=== PATIENT | male | born 1975 | race Caucasian/White ===

== ENCOUNTER 2022-07-23 18:13 | Inpatient (IN) | payer MEDICAID, SELFPAY ==
--- NOTE | ~2022-07-23 | CT_ITS ---
EXAMINATION: CT ABDOMEN AND PELVIS WITH CONTRAST CLINICAL INFORMATION: Abdominal pain COMPARISON: None TECHNIQUE: Multidetector volumetric images were obtained from the superior aspect of the liver through the pubic symphysis following administration 85 mL of Omnipaque 350 intravenous contrast. Sagittal and coronal reformatted images were obtained on the technologist's workstation. Oral contrast: No This CT examination was performed using dose optimization techniques as appropriate, variously including the following: *Automated exposure control *Adjustment of mA and/or kV according to patient size (this includes techniques or standardized protocols for targeted exams where dose is matched to indication/reason for exam; i.e. extremities or head) *Use of iterative reconstruction technique DLP: 442 mGy-cm FINDINGS: LUNG BASES: Mild bronchial wall thickening. LIVER, GALLBLADDER, AND BILIARY TREE: Hepatic steatosis. No focal liver lesions. Heterogeneous attenuation in the right lobe of liver relates to varying degrees of fatty infiltration and likely arterial portal shunting. No focal liver lesions. No biliary dilatation. Gallbladder unremarkable. PANCREAS: Unremarkable. SPLEEN: Unremarkable. ADRENAL GLANDS: Unremarkable. KIDNEYS AND URETERS: The kidneys are normal in size, shape, and attenuation. 2 mm nonobstructive calculus in the interpolar region of the left kidney bilateral simple renal cysts which are benign. No follow-up required. No hydronephrosis or hydroureter.. No perinephric stranding. BLADDER: Unremarkable. GASTROINTESTINAL TRACT: No intestinal obstruction or inflammation. Submucosal fat deposition within the right colon, nonspecific. Normal appendix. ABDOMINAL WALL: No significant hernia is appreciated. LYMPH NODES: Normal. VASCULAR: Unremarkable. PELVIC VISCERA: Unremarkable. OSSEOUS STRUCTURES: Unremarkable. CT/CT abdomen pelvis w IV con IMPRESSION: * No CT imaging evidence of pancreatitis. Please note that CT does not exclude very early pancreatitis. * Hepatic steatosis. * Nonobstructive 2 mm calculus, left kidney. Fleischner guidelines were followed.
[2022-07-23 19:26] VITALS: BP 142/98; PULSE 90; RESP 18; TEMP 36.8; O2SAT 98; BMI 21.7
[2022-07-23 19:50] LABS: Mean Corpuscular Hemoglobin 36.4 pg (27.0-33.0); PLT CLUMP 1; Red Cell Distribution Width 11.5 % (11.0-16.0)
[2022-07-23 19:52] LABS: Hematocrit 40.8 % (42.0-52.0); Hemoglobin 14.7 g/dl (14.0-18.0); Mean Platelet Volume 10.7 fL (9.4-12.4); Red Blood Count 4.04 X10*6/uL (4.60-5.80)
--- NOTE | 2022-07-23 19:52 | ED.ALCOHOL ---
HPI - Alcohol General Chief Complaint: ETOH/Substance Use <CHRISTINA Bran - Last Filed: 07/23/22 19:58> Stated Complaint: Seeking detox <CHRISTINA Bran - Last Filed: 07/23/22 19:58> Time Seen by Provider: 07/23/22 19:59 <CHRISTINA Bran - Last Filed: 07/23/22 19:58> Source: patient <Ernst Hyman MD - Last Filed: 07/23/22 21:02> Mode of arrival: ambulatory <Ernst Hyman MD - Last Filed: 07/23/22 21:02> Limitations: no limitations <Ernst Hyman MD - Last Filed: 07/23/22 21:02> History of Present Illness HPI narrative: 46-year-old male who presents emergency department for evaluation of nausea, vomiting, lightheadedness, dizziness and abdominal pain. Patient states he has been sick for 2 days. He states that he has not been able to eat or drink and has vomited multiple times. He states that this morning when he woke up he was having visual hallucinations. He states that he saw person standing in his room that was playing a guitar. He states that he is also having diffuse, sharp, Moderate to severe, abdominal pain which is intermittent and is worse when he vomits. He states that he is feeling lightheaded, dizzy, weak in the room is spinning. Patient normally drinks 10-20 nips of vodka per day. States his last drink was last night at 23:30 hours. Patient states that he has very tremulous. He states he has had alcohol withdrawal in the past but this is his worst episode. He states that he wants to get help with his alcohol use disorder. <Ernst Hyman MD - Last Filed: 07/23/22 21:02> Related Data Allergies/Adverse Reactions: Allergies Allergy/AdvReac Type Severity Reaction Status Date / Time No Known Allergies Allergy Verified 07/23/22 19:51 <CHRISTINA Bran - Last Filed: 07/23/22 19:58> Review of Systems Review of Systems: Yes all other systems are reviewed and are negative <Ernst Hyman MD - Last Filed: 07/23/22 21:02> [facility] Past Medical History [facility] Narrative: past medical history: Alcohol use disorder, pancreatitis. Past surgical history: Tonsillectomy. Social history: He smokes 1 pack of cigarettes per day times 21 years. He drinks 10-20 nips of vodka per day. He smokes marijuana daily. <Ernst Hyman MD - Last Filed: 07/23/22 21:02> Physical Exam ED Vital Signs: Vital Signs - 24 hr 07/23/22 19:26 07/23/22 20:46 Temperature 98.2 F 98.6 F Pulse Rate 90 85 Respiratory Rate 18 15 Blood Pressure 142/98 H 142/94 H Pulse Oximetry 98 100 Oxygen Delivery Method Room Air Room Air BMI result Body Mass Index 21.7 <CHRISTINA Bran - Last Filed: 07/23/22 19:58> Vital Signs - 24 hr 07/23/22 19:26 07/23/22 20:46 Temperature 98.2 F 98.6 F Pulse Rate 90 85 Respiratory Rate 18 15 Blood Pressure 142/98 H 142/94 H Pulse Oximetry 98 100 Oxygen Delivery Method Room Air Room Air BMI result Body Mass Index 21.7 <Ernst Hyman MD - Last Filed: 07/23/22 21:02> Const Other: Awake, alert, male patient, he is very tremulous, has a strong ketotic odor to his breath <Ernst Hyman MD - Last Filed: 07/23/22 21:02> HENMT Head: Yes normal to inspection, Yes normocephalic and Yes atraumatic <Ernst Hyman MD - Last Filed: 07/23/22 21:02> Ears: external ears normal <Ernst Hyman MD - Last Filed: 07/23/22 21:02> General nose exam: Normal external nose present <Ernst Hyman MD - Last Filed: 07/23/22 21:02> Face and sinus: Yes normal facial exam <Ernst Hyman MD - Last Filed: 07/23/22 21:02> Mouth: Normal oral and palatal mucosa present <Ernst Hyman MD - Last Filed: 07/23/22 21:02> Throat: Yes posterior oropharynx normal <Ernst Hyman MD - Last Filed: 07/23/22 21:02> Eyes General: appearance normal, both eyes and all related structures <Ernst Hyman MD - Last Filed: 07/23/22 21:02> Pupils: Equal, round and reactive pupils present <Ernst Hyman MD - Last Filed: 07/23/22 21:02> Neck Neck: Yes normal visual inspection, Yes no lymphadenopathy, Yes trachea midline and Yes supple <Ernst Hyman MD - Last Filed: 07/23/22 21:02> Chest Chest palpation & inspection: normal inspection of the chest and normal palpation of entire chest wall <Ernst Hyman MD - Last Filed: 07/23/22 21:02> Resp Effort & Inspection: normal respiratory effort and able to speak in complete sentences <Ernst Hyman MD - Last Filed: 07/23/22 21:02> Auscultation: clear to auscultation bilaterally <Ernst Hyman MD - Last Filed: 07/23/22 21:02> Cardio Rate: regular rate <MD [place] Ron Last Filed: 07/23/22 21:02> Rhythm: regular rhythm <Ernst Hyman MD - Last Filed: 07/23/22 21:02> Heart sounds: S1 normal heart sound present, S2 normal heart sound present and no murmurs <Ernst Hyman MD - Last Filed: 07/23/22 21:02> GI Inspection: Yes normal to inspection <Ernst Hyman MD - Last Filed: 07/23/22 21:02> Palpation (GI): Soft to palpation, Tenderness to palpation present (GI) ( moderate diffuse) and no guarding <MD [place] Ron Last Filed: 07/23/22 21:02> Auscultation: normal bowel sounds <MD [place] Ron Last Filed: 07/23/22 21:02> General: Yes no CVA tenderness <Ernst Hyman MD - Last Filed: 07/23/22 21:02> Back/Spine/Pelvis Back: no CVA tenderness <Ernst Hyman MD - Last Filed: 07/23/22 21:02> Skin General skin exam: no rashes or lesions noted <Ernst Hyman MD - Last Filed: 07/23/22 21:02> Neuro Cranial nerves: Yes CN's II-XII intact bilaterally and Yes Equal, round and reactive pupils present <Ernst Hyman MD - Last Filed: 07/23/22 21:02> Cognition (Neuro): normal cognition <Ernst Hyman MD - Last Filed: 07/23/22 21:02> Motor exam (neuro): 5/5 motor strength present throughout <Ernst Hyman MD - Last Filed: 07/23/22 21:02> Extrem General: Yes normal to inspection <Ernst Hyman MD - Last Filed: 07/23/22 21:02> Psych Appearance: grossly normal <Ernst Hyman MD - Last Filed: 07/23/22 21:02> Speech and movement: Normal speech and movement present <Ernst Hyman MD - Last Filed: 07/23/22 21:02> Affect: normal affect <Ernst Hyman MD - Last Filed: 07/23/22 21:02> Attitude: cooperative <Ernst Hyman MD - Last Filed: 07/23/22 21:02> Thought process: Normal thought process present <Ernst Hyman MD - Last Filed: 07/23/22 21:02> Thought content: Normal thought content present <Ernst Hyman MD - Last Filed: 07/23/22 21:02> Course Course Course Narrative: 1950 46 year old male hx of alcohol abuse presents seeking detox. Typically drinks 1 -2 sleeves of smirnof vodka a day. Last drink was > 24 hours ago. Patient is trying to stop cold turkey because its killing me . No SI No HI. Went to Detox once and it helped. Complains of [place], anxiety, headache, visual hallucinations. No hx of w/ drawl seziures PE: CIWA 17 patient w/ anxiety, diaphoresis, tachycardia Plan- bring back to department will need phenobarb. Ordered 2 mg po ativan <CHRISTINA Bran - Last Filed: 07/23/22 19:58> 1950 46 year old male hx of alcohol abuse presents seeking detox. Typically drinks 1 -2 sleeves of smirnof vodka a day. Last drink was > 24 hours ago. Patient is trying to stop cold turkey because its killing me . No SI No HI. Went to Detox once and it helped. Complains of [place], anxiety, headache, visual hallucinations. No hx of w/ drawl seziures PE: CIWA 17 patient w/ anxiety, diaphoresis, tachycardia Plan- bring back to department will need phenobarb. Ordered 2 mg po ativan 2036: RME reviewed. 46-year-old male with a history of alcohol use disorder, pancreatitis who stop drinking 2 days prior secondary to multiple episodes of vomiting per day. The patient has not been able to eat or drink secondary to his nausea and vomiting. Patient's last drink was yesterday at 20:30 hours. Patient did have a visual hallucination this morning, he is tremulous, his exam did reveal diffuse abdominal tenderness. Patient's presentation is consistent with acute alcohol withdrawal. Laboratory evaluation: Low platelet count 100,000, elevated MCV 101, elevated AST and ALT 196 and 122, elevated alk-phos of 122, elevated bilirubin 2.0 point magnesium was low at 1.2. I added a lipase and alcohol level to the patient's labs. Patient will be treated with phenobarbital IM 12 milligrams/kilogram in 3 divided doses. Patient will also be given lactated Ringer's x2 L, Zofran 4 mg IV and Toradol 15 mg IV. Patient's magnesium will be replaced IV. I also ordered oral thiamine and folic acid. patient's presentation is consistent with delirium tremens therefore he will need to be admitted for further management. 2050: I did discuss the patient's presentation with the covering hospitalist, Dr. Rodriguez. After this discussion, I ordered a lactic acid, venous blood gas, CT scan of the abdomen pelvis with IV contrast to evaluate the patient's abdominal pain and to rule out pancreatitis. Patient will be admitted to intermediate care unit for further management <Ernst Hyman MD - Last Filed: 07/23/22 21:02> Medical Decision Making Lab Data Result Diagrams: : 07/23/22 19:45 07/23/22 19:45 <CHRISTINA Bran - Last Filed: 07/23/22 19:58> Labs: Lab Results 07/23/22 07/23/22 Range/Units 19:45 19:45 WBC 7.2 (4.8-10.8) X10*3/uL RBC 4.04 L (4.60-5.80) X10*6/uL Hgb 14.7 (14.0-18.0) g/dl Hct 40.8 L (42.0-52.0) % MCV 101.0 H (80.0-98.0) fL MCH 36.4 H (27.0-33.0) pg MCHC 36.0 (31.0-36.0) g/dl RDW 11.5 (11.0-16.0) % Plt Count 100 L (160-400) X10*3/uL MPV 10.7 (9.4-12.4) fL Absolute Nucleated RBC 0.000 (0.0-0.012) X10*3/uL Nucleated RBC % (auto) 0.0 (0.0-0.2) /100WBC Sodium 136 (135-145) mmol/L Potassium 3.8 (3.3-5.1) mmol/L Chloride 93 L (96-108) mmol/L Carbon Dioxide 24 (22-29) mmol/L Anion Gap 23 H (12-20) BUN 9 (9-16) mg/dL Creatinine 0.82 (0.5-1.4) mg/dL Estim Creat Clear Calc 118.0 Estimated GFR > 60 Random Glucose 136 H (60-115) mg/dL Calcium 10.0 (8.4-10.2) mg/dL Magnesium 1.2 L* (1.6-2.6) mg/dL Total Bilirubin 2.0 H (0.0-1.0) mg/dL AST 196 H (5-37) U/L ALT 122 H (0-40) U/L Alkaline Phosphatase 122 H (39-117) U/L Total Protein 7.8 (6.5-8.0) g/dL Albumin 4.7 (3.5-5.0) g/dL <CHRISTINA Bran - Last Filed: 07/23/22 19:58> Lab Results 07/23/22 07/23/22 Range/Units 19:45 19:45 WBC 7.2 (4.8-10.8) X10*3/uL RBC 4.04 L (4.60-5.80) X10*6/uL Hgb 14.7 (14.0-18.0) g/dl Hct 40.8 L (42.0-52.0) % MCV 101.0 H (80.0-98.0) fL MCH 36.4 H (27.0-33.0) pg MCHC 36.0 (31.0-36.0) g/dl RDW 11.5 (11.0-16.0) % Plt Count 100 L (160-400) X10*3/uL MPV 10.7 (9.4-12.4) fL Absolute Nucleated RBC 0.000 (0.0-0.012) X10*3/uL Nucleated RBC % (auto) 0.0 (0.0-0.2) /100WBC Sodium 136 (135-145) mmol/L Potassium 3.8 (3.3-5.1) mmol/L Chloride 93 L (96-108) mmol/L Carbon Dioxide 24 (22-29) mmol/L Anion Gap 23 H (12-20) BUN 9 (9-16) mg/dL Creatinine 0.82 (0.5-1.4) mg/dL Estim Creat Clear Calc 118.0 Estimated GFR > 60 Random Glucose 136 H (60-115) mg/dL Calcium 10.0 (8.4-10.2) mg/dL Magnesium 1.2 L* (1.6-2.6) mg/dL Total Bilirubin 2.0 H (0.0-1.0) mg/dL AST 196 H (5-37) U/L ALT 122 H (0-40) U/L Alkaline Phosphatase 122 H (39-117) U/L Total Protein 7.8 (6.5-8.0) g/dL Albumin 4.7 (3.5-5.0) g/dL <Ernst Hyman MD - Last Filed: 07/23/22 21:02> Medications Administered Generic Name Dose Route Start Last Admin Trade Name Freq PRN Reason Stop Dose Admin Lactated Ringer's 1,000 mls @ 999 mls/hr 07/23/22 20:30 07/23/22 20:49 Lr IV 07/23/22 21:30 999 mls/hr .Q1H1M LAURA Administration Lactated Ringer's 1,000 mls @ 999 mls/hr 07/23/22 20:30 07/23/22 20:50 Lr IV 07/23/22 21:30 999 mls/hr .Q1H1M LAURA Administration Phenobarbital Sodium 348 mg 07/23/22 21:00 07/23/22 20:48 Phenobarbital Sodium 130 Mg/Ml Im Once IM 07/23/22 21:01 348 mg ONCE ONE Administration Discontinued Medications Generic Name Dose Route Start Last Admin Trade Name Freq PRN Reason Stop Dose Admin Folic Acid 1 mg 07/23/22 20:32 07/23/22 20:49 Folic Acid 1 Mg Tablet PO 07/23/22 20:33 1 mg ONCE ONE Administration Ketorolac Tromethamine 15 mg 07/23/22 20:28 07/23/22 20:49 Ketorolac Tromethamine 15 Mg/Ml Vial IVPUSH 07/23/22 20:29 15 mg ONCE STA Administration Lorazepam 2 mg 07/23/22 19:55 07/23/22 20:30 Lorazepam 1 Mg Tablet PO 07/23/22 19:56 2 mg ONCE ONE Administration Ondansetron HCl 4 mg 07/23/22 19:51 07/23/22 19:54 Ondansetron Odt 4 Mg Tab.Rapdis TRANSLINGU 07/23/22 19:52 4 mg ONCE ONE Administration Ondansetron HCl 4 mg 07/23/22 20:28 07/23/22 20:48 Ondansetron Hcl 4 Mg/2 Ml Vial IVPUSH 07/23/22 20:29 4 mg ONCE ONE Administration Thiamine HCl 100 mg 07/23/22 20:32 07/23/22 20:49 Thiamine Hcl 100 Mg Tablet PO 07/23/22 20:33 100 mg ONCE ONE Administration <CHRISTINA Bran - Last Filed: 07/23/22 19:58> Medications Administered Generic Name Dose Route Start Last Admin Trade Name [place] PRN Reason Stop Dose Admin Lactated Ringer's 1,000 mls @ 999 mls/hr 07/23/22 20:30 07/23/22 20:49 Lr IV 07/23/22 21:30 999 mls/hr .Q1H1M LAURA Administration Lactated Ringer's 1,000 mls @ 999 mls/hr 07/23/22 20:30 07/23/22 20:50 Lr IV 07/23/22 21:30 999 mls/hr .Q1H1M LAURA Administration Phenobarbital Sodium 348 mg 07/23/22 21:00 07/23/22 20:48 Phenobarbital Sodium 130 Mg/Ml Im Once IM 07/23/22 21:01 348 mg ONCE ONE Administration Discontinued Medications Generic Name Dose Route Start Last Admin Trade Name Suyapa PRN Reason Stop Dose Admin Folic Acid 1 mg 07/23/22 20:32 07/23/22 20:49 Folic Acid 1 Mg Tablet PO 07/23/22 20:33 1 mg ONCE ONE Administration Ketorolac Tromethamine 15 mg 07/23/22 20:28 07/23/22 20:49 Ketorolac Tromethamine 15 Mg/Ml Vial IVPUSH 07/23/22 20:29 15 mg ONCE STA Administration Lorazepam 2 mg 07/23/22 19:55 07/23/22 20:30 Lorazepam 1 Mg Tablet PO 07/23/22 19:56 2 mg ONCE ONE Administration Ondansetron HCl 4 mg 07/23/22 19:51 07/23/22 19:54 Ondansetron Odt 4 Mg Tab.Rapdis TRANSLINGU 07/23/22 19:52 4 mg ONCE ONE Administration Ondansetron HCl 4 mg 07/23/22 20:28 07/23/22 20:48 Ondansetron Hcl 4 Mg/2 Ml Vial IVPUSH 07/23/22 20:29 4 mg ONCE ONE Administration Thiamine HCl 100 mg 07/23/22 20:32 07/23/22 20:49 Thiamine Hcl 100 Mg Tablet PO 07/23/22 20:33 100 mg ONCE ONE Administration <Ernst Hyman MD - Last Filed: 07/23/22 21:02> Critical Care Time Critical Care Time Critical Care Time: Yes <Ernst Hyman MD - Last Filed: 07/23/22 21:02> Total Critical Care Time: 45 <Ernst Hyman MD - Last Filed: 07/23/22 21:02> Attestation: Critical Care: The patient was critically ill with a high probability of imminent or life threatening deterioration. I spent greater than 30 minutes of discontinuous time evaluating the patient,delivering critical care at the bedside, discussing and evaluating pertinent data with consultants. Critical care time does not include time spent performing separately billable procedures or teaching. Total time spent performing critical care was 45 minutes. <Ernst Hyman MD - Last Filed: 07/23/22 21:02> Discharge Plan Discharge Clinical Impression: Delirium tremens, Alcoholic ketoacidosis, Hypomagnesemia Abdominal pain Qualifiers: Abdominal location: generalized Qualified Code(s): R10.84 - Generalized abdominal pain <CHRISTINA Bran - Last Filed: 07/23/22 19:58> Patient Disposition: Admitted As Inpatient <CHRISTINA Bran - Last Filed: 07/23/22 19:58> Interventions: [place]-Suicide Risk Severity Scale Last Done: 07/23/22 20:36 <CHRISTINA Bran - Last Filed: 07/23/22 19:58>
[2022-07-23] MEDS: Ondansetron ODT 4 MG TAB.RAPDIS TRANSLINGU (19:54)
[2022-07-23 19:57] LABS: Platelet Count 100 X10*3/uL (160-400); White Blood Count 7.2 X10*3/uL (4.8-10.8)
[2022-07-23 20:24] LABS: Alanine Aminotransferase 122 U/L (0-40); Albumin Level 4.7 g/dL (3.5-5.0); Alkaline Phosphatase 122 U/L (39-117); Anion Gap 23 (12-20); Aspartate Amino Transferase 196 U/L (5-37); Blood Urea Nitrogen 9 mg/dL (9-16); Carbon Dioxide 24 mmol/L (22-29); Chloride 93 mmol/L (96-108); Estimated Glomerular Filt Rate > 60; Glucose Random 136 mg/dL (60-115); Potassium 3.8 mmol/L (3.3-5.1); Sodium 136 mmol/L (135-145); Total Protein 7.8 g/dL (6.5-8.0)
[2022-07-23 20:25] LABS: Magnesium 1.2 mg/dL (1.6-2.6)
--- NOTE | 2022-07-23 20:26 | ED_ITS ---
HPI - Alcohol General Chief Complaint: ETOH/Substance Use Stated Complaint: Seeking detox Time Seen by Provider: 07/23/22 19:59 Related Data Allergies Allergy/AdvReac Type Severity Reaction Status Date / Time No Known Allergies Allergy Verified 07/23/22 19:51 Physical Exam ED Vital Signs: Vital Signs - 24 hr 07/23/22 19:26 07/23/22 20:46 Temperature 98.2 F 98.6 F Pulse Rate 90 85 Respiratory Rate 18 15 Blood Pressure 142/98 H 142/94 H Pulse Oximetry 98 100 Oxygen Delivery Method Room Air Room Air BMI result Body Mass Index 21.7 Medical Decision Making Consult Healthcare Provider Management of the patient was discussed with: Hospitalist Lab Data MDM Lab Attestation statement: I reviewed the patient's lab results. Result Diagrams: 07/23/22 19:45 07/23/22 19:45 Labs: Lab Results 07/23/22 07/23/22 Range/Units 19:45 19:45 WBC 7.2 (4.8-10.8) X10*3/uL RBC 4.04 L (4.60-5.80) X10*6/uL Hgb 14.7 (14.0-18.0) g/dl Hct 40.8 L (42.0-52.0) % MCV 101.0 H (80.0-98.0) fL MCH 36.4 H (27.0-33.0) pg MCHC 36.0 (31.0-36.0) g/dl RDW 11.5 (11.0-16.0) % Plt Count 100 L (160-400) X10*3/uL MPV 10.7 (9.4-12.4) fL Absolute Nucleated RBC 0.000 (0.0-0.012) X10*3/uL Nucleated RBC % (auto) 0.0 (0.0-0.2) /100WBC Sodium 136 (135-145) mmol/L Potassium 3.8 (3.3-5.1) mmol/L Chloride 93 L (96-108) mmol/L Carbon Dioxide 24 (22-29) mmol/L Anion Gap 23 H (12-20) BUN 9 (9-16) mg/dL Creatinine 0.82 (0.5-1.4) mg/dL Estim Creat Clear Calc 118.0 Estimated GFR > 60 Random Glucose 136 H (60-115) mg/dL Calcium 10.0 (8.4-10.2) mg/dL Magnesium 1.2 L* (1.6-2.6) mg/dL Total Bilirubin 2.0 H (0.0-1.0) mg/dL AST 196 H (5-37) U/L ALT 122 H (0-40) U/L Alkaline Phosphatase 122 H (39-117) U/L Total Protein 7.8 (6.5-8.0) g/dL Albumin 4.7 (3.5-5.0) g/dL Medications Administered Generic Name Dose Route Start Last Admin Trade Name Suyapa PRN Reason Stop Dose Admin Lactated Ringer's 1,000 mls @ 999 mls/hr 07/23/22 20:30 07/23/22 20:49 Lr IV 07/23/22 21:30 999 mls/hr .Q1H1M LAURA Administration Lactated Ringer's 1,000 mls @ 999 mls/hr 07/23/22 20:30 07/23/22 20:50 Lr IV 07/23/22 21:30 999 mls/hr .Q1H1M LAURA Administration Phenobarbital Sodium 348 mg 07/23/22 21:00 07/23/22 20:48 Phenobarbital Sodium 130 Mg/Ml Im Once IM 07/23/22 21:01 348 mg ONCE ONE Administration Discontinued Medications Generic Name Dose Route Start Last Admin Trade Name Suyapa PRN Reason Stop Dose Admin Folic Acid 1 mg 07/23/22 20:32 07/23/22 20:49 Folic Acid 1 Mg Tablet PO 07/23/22 20:33 1 mg ONCE ONE Administration Ketorolac Tromethamine 15 mg 07/23/22 20:28 07/23/22 20:49 Ketorolac Tromethamine 15 Mg/Ml Vial IVPUSH 07/23/22 20:29 15 mg ONCE STA Administration Lorazepam 2 mg 07/23/22 19:55 07/23/22 20:30 Lorazepam 1 Mg Tablet PO 07/23/22 19:56 2 mg ONCE ONE Administration Ondansetron HCl 4 mg 07/23/22 19:51 07/23/22 19:54 Ondansetron Odt 4 Mg Tab.Rapdis TRANSLINGU 07/23/22 19:52 4 mg ONCE ONE Administration Ondansetron HCl 4 mg 07/23/22 20:28 07/23/22 20:48 Ondansetron Hcl 4 Mg/2 Ml Vial IVPUSH 07/23/22 20:29 4 mg ONCE ONE Administration Thiamine HCl 100 mg 07/23/22 20:32 07/23/22 20:49 Thiamine Hcl 100 Mg Tablet PO 07/23/22 20:33 100 mg ONCE ONE Administration Critical Care Time Critical Care Time Critical Care Time: Yes Total Critical Care Time: 45 Attestation: Critical Care: The patient was critically ill with a high probability of immi nent or life threatening deterioration. I spent greater than 30 minutes of discontinuous time evaluating the patient,delivering critical care at the bedside, discussing and evaluating pertinent data with consultants. Critical care time does not include time spent performing separately billable procedures or teaching. Total time spent performing critical care was 45 minutes. Discharge Plan Discharge Clinical Impression: Delirium tremens, Alcoholic ketoacidosis, Hypomagnesemia Abdominal pain Qualifiers: Abdominal location: generalized Qualified Code(s): R10.84 - Generalized abdominal pain Patient Disposition: Admitted As Inpatient Interventions: [place]-Suicide Risk Severity Scale Last Done: 07/23/22 20:36
[2022-07-23] MEDS: LORazepam 1 MG TABLET 2 MG PO (20:30)
[2022-07-23 20:46] VITALS: BP 142/94; PULSE 85; RESP 15; TEMP 37; O2SAT 100
[2022-07-23] MEDS: PHENobarbitaL sodium 130 MG/ML IM ONCE 348 MG IM (20:48)
[2022-07-23] MEDS: ondansetron HCL 4 MG/2 ML VIAL IVPUSH (20:48)
[2022-07-23] MEDS: Folic Acid 1 MG TABLET PO (20:49)
[2022-07-23] MEDS: Lactated Ringers 1,000 ML 999 ML IV ×2 (20:49→20:50)
[2022-07-23] MEDS: Ketorolac Tromethamine 15 MG/ML VIAL IVPUSH (20:49)
[2022-07-23] MEDS: Thiamine HCL 100 MG TABLET PO (20:49)
--- NOTE | 2022-07-23 20:50 | ECG_ITS ---
Test Reason : ETOH Blood Pressure : / mmHG Vent. Rate : 072 BPM Atrial Rate : 072 BPM P-R Int : 128 ms QRS Dur : 088 ms QT Int : 406 ms P-R-T Axes : 002 082 055 degrees QTc Int : 444 ms Normal sinus rhythm Low voltage QRS Borderline ECG No previous ECGs available Referred By: Generic ED Physician Electronically Signed By:TATYANA HARRISON MD
[2022-07-23 21:08] LABS: Acetaminophen LAB < 1 mcg/mL (<30); Ethanol < 10 mg/dL; Lipase 96 U/L (8-78); Salicylate < 5.0 mg/dL (15-30)
--- NOTE | 2022-07-23 21:11 | PC.NURSE ---
pt change attendant to hospital attire, placed on bed side monitor. 20g Iv placed . Notified SALOME Heath.
[2022-07-23] MEDS: Magnesium Sulfate/H2O 2 GM/50 ML PIGGYBACK IV (21:24)
[2022-07-23 21:30] LABS: VBG Base Excess 1.3 mmol/L; VBG HCO3 25 mmol/L (22-26); VBG pCO2 37 mmHg; VBG pH 7.43 (7.32-7.43); VBG pO2 41 mmHg
[2022-07-23 21:31] LABS: Venous Blood Gas Refer to POC result
--- NOTE | 2022-07-23 21:32 | MHC.RECOVSUP ---
? Reason for consult:ETOH o? Current location:ED17? o? Identified substance use concern:? -? Withdrawal -? Seeking ATS (detox) -? Support ? Intervention: o? Community resources provided o? Harm reduction discussion ? Plan: o? Follow up tomorrow? ? Additional information:RC met pt, discussed harm reduction and recovery coaching services, pt is in withdrawl, please follow up tomorrow. RC provided pt with community resources and contact information.
[2022-07-23 21:38] LABS: Lactic Acid 2.3 mmol/L (0.5-2.0)
--- NOTE | 2022-07-23 21:42 | P.HPHOSP_ITS ---
History of Present Illness Date of Service: 07/23/22 Chief Complaint: alcohol withdrawal 46-year-old male with past medical history of alcohol abuse presents to hospital complaints of alcohol withdrawal. Patient reports that he drinks about 10-20 shots of vodka daily, his last drink was the day prior, reports that he intentionally stop drinking because he is interested in the toxic. Reports severe withdrawal, patient reports visual hallucination. Reports no headache, no change in vision, no weakness numbness or tingling, no fever or chills, no chest pain, no abdominal pain nausea or vomiting, no diarrhea constipation, no urinary symptoms and no lower extremity edema. On arrival to the ED patient hemodynamically stable no significant abnormal Labs are significant for WBC count of 7.2, hemoglobin of 14.7, hematocrit 40.8, CV of 101, pH of 7.43, lactic acid of 2.3 normalized with fluids, lead knees in 1.2, AST of 196, ALT of 122, alk-phos of 122, lipase of 96, positive barbiturates on UDS, alcohol level less than 10, viral serology negative Review of Systems Review of Systems: Yes all other systems are reviewed and are negative [facility] Medical History Alcohol abuse Family History Other No family history of coronary artery disease Surgical History No pertinent past surgical history Social History Alcohol intake: current Alcohol intake frequency: 3 or more drinks per day Alcohol type: hard liquor Smoked in Last 30 Days: Yes Use of substances other than those prescribed or required for medical reasons: No Advance Directives: No Advance Directives Information Provided: No Meds Allergies Allergy/AdvReac Type Severity Reaction Status Date / Time No Known Allergies Allergy Verified 07/23/22 19:51 Active Medications: Current Medications Magnesium Sulfate (Magnesium Sulfate/H2o) 2 gm in 50 mls @ 25 mls/hr IV ONCE ONE Stop: 07/23/22 22:41 Last Admin: 07/23/22 21:24 Dose: 25 mls/hr Pharmacy Consult (Consult Rx Etoh Phenob Im/Po) 1 each MISCELLANE ONCE PRN; Protocol PRN Reason: Consult order Phenobarbital (Phenobarbital 15 Mg Tablet) 45 mg PO BID [facility] Stop: 07/26/22 09:01 Phenobarbital (Phenobarbital 15 Mg Tablet) 15 mg PO BID [facility] Stop: 07/28/22 09:01 Phenobarbital (Phenobarbital 15 Mg Tablet) 15 mg PO DAILY [facility] Stop: 07/30/22 09:01 Phenobarbital Sodium (Phenobarbital Sodium 130 Mg/Ml Vial Im Q3hx2) 261 mg IM Q3H [facility]URA Stop: 07/24/22 03:01 Home Medications Medication Instructions Recorded Confirmed Last Taken Type No Known Home Meds 07/23/22 07/23/22 Unknown History Physical Exam Vital Signs and Narrative: Vital Signs: Last Vital Signs Temp 98.6 F 07/23/22 20:46 Pulse 85 07/23/22 20:46 Resp 15 07/23/22 20:46 BP 142/94 H 07/23/22 20:46 Pulse Ox 100 07/23/22 20:46 O2 Del Method 07/23/22 20:46 BMI result Body Mass Index 21.7 Neuro: Other: Positive for asterixis Psych: Other: Visual hallucinations Results Labs CBC and Chem 7: 07/23/22 19:45 07/23/22 19:45 Labs: Laboratory Results - last 24 hr 07/23/22 07/23/22 07/23/22 19:45 19:45 19:45 MCV 101.0 H MCH 36.4 H MCHC 36.0 RDW 11.5 Plt Count 100 L MPV 10.7 Absolute Nucleated RBC 0.000 Nucleated RBC % (auto) 0.0 VBG pH VBG pCO2 VBG pO2 VBG HCO3 VBG O2 Saturation VBG Base Excess Anion Gap 23 H Estim Creat Clear Calc 118.0 Estimated GFR > 60 Random Glucose 136 H Lactic Acid Calcium 10.0 Magnesium 1.2 L* Total Bilirubin 2.0 H AST 196 H ALT 122 H Alkaline Phosphatase 122 H Total Protein 7.8 Albumin 4.7 Lipase 96 H Salicylates < 5.0 L Acetaminophen < 1 Ethyl Alcohol < 10 07/23/22 07/23/22 21:17 21:19 MCV MCH MCHC RDW Plt Count MPV Absolute Nucleated RBC Nucleated RBC % (auto) VBG pH 7.43 VBG pCO2 37 VBG pO2 41 VBG HCO3 25 VBG O2 Saturation 62.0 VBG Base Excess 1.3 Anion Gap Estim Creat Clear Calc Estimated GFR Random Glucose Lactic Acid 2.3 H* Calcium Magnesium Total Bilirubin AST ALT Alkaline Phosphatase Total Protein Albumin Lipase Salicylates Acetaminophen Ethyl Alcohol Assessment and Plan (1) Alcohol abuse with withdrawal: Status: Acute (2) Alcoholic ketoacidosis: Status: Acute (3) Hypomagnesemia: Status: Acute Plan 46-year-old male with past medical history of alcohol abuse presents to the hospital with of call withdrawal # alcohol abuse with alcohol withdrawal - delirium tremors, with visual hallucinations - no history of withdrawal seizures - patient started on phenobarb protocol - folic and thiamine supplement - care team consulted # alcoholic ketoacidosis - VBG shows normal pH - resolved with IV fluids # hypomagnesemia - repleted - follow Mag level DVT prophylaxis: Early ambulation Time Spent With Patient Time: Total time managing care of this patient today ____ minutes. Quality Stroke Does the patient have a stroke diagnosis?: No VTE Prior VTE?: No VTE Risk Level:: Medical - moderate - high VTE Device Contraindication: Treatment Not Indicated VTE Drug Contraindication: N/A - Med Ordered
[2022-07-23 22:00] VITALS: BP 130/81; PULSE 78; RESP 16; TEMP 37.1; O2SAT 98
[2022-07-23 22:01] LABS: Influenza A PCR NEGATIVE (Negative); Influenza B PCR NEGATIVE (Negative); Resp Syncy Virus RNA Qual PCR NEGATIVE (Negative); SARS COV2 PCR INHOUSE NEGATIVE (Negative)
--- OUTSIDE RECORDS SUMMARY | 2022-07-23 22:04 | XMS_ITS | Continuity of Care Document ---
:1975 Author Organization [facility] Address [address] [place] [address]- Care Team Providers Name Role Phone Amarjit Amezcua MD [facility] Care [id number] Date[facility] - 05/10/[facility] [address] [place] [address]- [facility] Encounter Diagnosis Neuropathy (Discharge Diagnosis) - 05/03/20 Anxiety (Discharge Diagnosis) - 05/03/20 Attending Physician: Amarjit Amezcua MD Allergies, Adverse Reactions, Alerts Substance Reaction Severity Status NKA Active Immunizations Given and Recorded Vaccine Date Status Refusal Reason tetanus-diphtheria toxoids (Td) 02/07/05 Given Medications busPIRone 5 mg oral tablet 5 mg, 1, tablet, By Mouth, 2 times a day, # 60 tablet, Refills 3, Tot. Refills 3, Maintenance, 05/03/20 10:33:00 EDT, Route to Pharmacy Electronically, [facility]/pharmacy #[id number], 183, cm, 02/25/20 22:23:00 EDT, Height, 75, kg, 02/25/20 22:23:00 EDT, Dry Weight Start Date: 05/03/20 Status: Orderedgabapentin 100 mg oral capsule See Instructions, 1 cap PO q AM and 1 cap PO q noon. Take in conjuction with 300 mg cap at night, # 60 tablet, Refills 3, Tot. Refills 3, Maintenance, 05/03/20 10:25:00 EDT, Instructions Replace Required Details, Route to Pharmacy Electronically, C... Start Date: 05/03/20 Status: Orderedgabapentin 100 mg oral capsule See Instructions, 1 cap PO q HS x 3 days then increase to 1 cap PO BID, # 60 tablet, Refills 0, Tot.Refills 0, Maintenance, 04/28/20 16:44:00 EDT, Instructions Replace Required Details, Route to Pharmacy Electronically, [facility]/pharmacy #[id number], 183, cm, 0... Start Date: 04/28/20 Status: Orderedgabapentin 300 mg oral capsule 300 mg, 1, capsule, By Mouth, Daily at bedtime, Take in conjuction with 100 mg PO q AM and q noon., # 30 capsule, Refills 11, Tot. Refills 11, Maintenance, 05/03/20 10:28:00 EDT, Route to Pharmacy Electronically, [facility]/pharmacy #[id number], 183, cm, 02/25/20... Start Date: 05/03/20 Status: OrderedVistaril pamoate 25 mg oral capsule 1 capsule = 25 mg, By Mouth, 4 times a day, PRN for anxiety, # 40 capsule, 0 Refills, Acute 05/03/2110:37:00 EDT, 05/03/20 10:36:00 EDT, Capsule, [facility]/pharmacy #1234, 183, cm, 02/25/20 22:23:00 EDT, Height, 75, kg, 02/25/20 22:23:00 EDT, Dry Weight Start Date: 05/03/20 Stop Date: 05/03/21 Status: Ordered Problem List Condition Effective Dates Status Health Status Informant Asthma since childhood uses rescue MDI 04/27/09 Active prn(Confirmed) Family history of aneurysm(Confirmed) Active GERD - Gastro-esophageal reflux Active disease(Confirmed) H/O alcohol abuse(Confirmed) Active Tonsillectomy and Active adenoidectomy(Confirmed) Diagnosis Diagnosis Type Effective Dates Health Status Clinical Serv ice Informant Neuropathy Discharge 05/03/20 Diagnosis Anxiety Discharge 05/03/20 Diagnosis Social History Social History Type Response Smoking Status 10 or more cigarettes (1/2 p ack or more)/day in last 30 days entered on: 02/25/20 Sex
--- OUTSIDE RECORDS SUMMARY | 2022-07-23 22:04 | XMS_ITS | Continuity of Care Document ---
:1975 Author Organization [facility] Address [address] [place] [address]- Care Team Providers Name Role Phone Amarjit Amezcua MD Primary Care Physician Encounter [facility] Date(s): 08/04/19 - 08/14/19 [facility] [address] [place] [address]- [facility] Attending Physician: Admtr, Damian8 Allergies, Adverse Reactions, Alerts Substance Reaction Severity Status NKA Active Immunizations Given and Recorded Vaccine Date Status Refusal Reason tetanus-diphtheria toxoids (Td) 02/07/05 Given Problem List Condition Effective Dates Status Health Status Informant Asthma since childhood uses rescue MDI 04/27/09 Active prn(Confirmed) Family history of aneurysm(Confirmed) Active GERD - Gastro-esophageal reflux Active disease(Confirmed) H/O alcohol abuse(Confirmed) Active Tonsillectomy and Active adenoidectomy(Confirmed) Social History Social History Type Response Smoking Status 10 or more cigarettes (1/2 p ack or more)/day in last 30 days entered on: 02/24/19 Sex
--- OUTSIDE RECORDS SUMMARY | 2022-07-23 22:04 | XMS_ITS | Continuity of Care Document ---
:1975 Author Organization [facility] Address [address] [place] [address]- Care Team Providers Name Role Phone Amarjit Amezcua MD Primary Care Physician Encounter [facility] [place] Date(s): 04/17/20 - 05/17/20 [facility] [address] [place] [address]- [facility] Allergies, Adverse Reactions, Alerts Substance Reaction Severity Status NKA Active Immunizations Given and Recorded Vaccine Date Status Refusal Reason tetanus-diphtheria toxoids (Td) 02/07/05 Given Medications busPIRone 5 mg oral tablet 5 mg, 1, tablet, By Mouth, 2 times a day, # 60 tablet, Refills 3, Tot. Refills 3, Maintenance, 05/03/20 10:33:00 EDT, Route to Pharmacy Electronically, [facility]/pharmacy #1234, 183, cm, 02/25/20 22:23:00 EDT, Height, [...] Replace Required Details, Route to Pharmacy Electronically, [facility]/pharmacy #1234, 183, cm, 0... Start Date: 04/28/20 Status: Orderedgabapentin 300 mg oral capsule 300 mg, 1, capsule, By Mouth, Daily at bedtime, Take in conjuction with 100 mg PO q AM and q noon., # 30 capsule, Refills 11, Tot. Refills 11, Maintenance, 05/03/20 10:28:00 EDT, Route to Pharmacy Electronically, [facility]/pharmacy #1234, 183, cm, 02/25/20... Start Date: 05/03/20 Status: OrderedVistaril pamoate 25 mg oral capsule 1 capsule = 25 mg, By Mouth, 4 times a day, PRN for anxiety, # 40 capsule, 0 Refills, Acute 05/03/2110:37:00 EDT, 05/03/20 10:36:00 EDT, Capsule, [facility]/pharmacy #1234, 183, cm, 02/25/20 22:23:00 EDT, Height, [...]
--- OUTSIDE RECORDS SUMMARY | 2022-07-23 22:04 | XMS_ITS | Continuity of Care Document ---
:1975 Author Organization [facility] Address [address] [place] [address]- Care Team Providers Name Role Phone Amarjit Amezcua MD [id number] [address] [place] [address] Encounter Diagnosis Numbness of foot (Discharge Diagnosis) - 03/12/20 Hand numbness (Discharge Diagnosis) - 03/12/20 Hematuria (Discharge Diagnosis) - 03/12/20 Fall (Discharge Diagnosis) - 03/12/20 Attending Physician: Amarjit Amezcua MD Allergies, Adverse [...] Diagnosis Type Effective Dates Health Status Clinical In formant Service Numbness of foot Discharge 03/12/20 Diagnosis Hand numbness Discharge 03/12/20 Diagnosis Hematuria Discharge 03/12/20 Diagnosis Fall Discharge 03/12/20 Diagnosis Social History Social History Type Response Smoking Status 10 or more cigarettes (1/2 p ack or more)/day in last 30 days entered on: 02/25/20 Sex
--- OUTSIDE RECORDS SUMMARY | 2022-07-23 22:04 | XMS_ITS | Continuity of Care Document ---
:[address] [facility] Address [address] [place] [address]- Care Team Providers Name Role Phone Mirza Styles MD Primary Care Physician Encounter [facility] [place] Date(s): 10/25/21 - 11/01/21 [facility] [address] [place], [place] [address] Attending Physician: Mirza Styles MD Allergies, Adverse Reactions, Alerts No Known Allergies Immunizations Given and Recorded Vaccine Date Status Refusal Reason tetanus-diphtheria toxoids (Td) 02/07/05 Given Medications albuterol CFC free 90 mcg/inh inhalation aerosol 180 mcg, 2, puffs, Inhalation, Every 4 hours, PRN, # 6.7 Gm, Refills 0, Tot. Refills 0, Maintenance,08/24/21 12:19:00 EST, Inhaler, Route to Pharmacy Electronically, [id number], [facility]/pharmacy #[id number], 183, cm, 08/24/21 11:15:00... Start Date: 08/24/21 Status: OrderedbusPIRone 10 mg oral tablet 5 mg, 0.5, tablet, By Mouth, 2 times a day, Refills 0, Maintenance, 08/24/21 12:19:00 EST, Partial fill upon patient request if the prescription is for a schedule II opioid drug. Start Date: 08/24/21 Status: Orderedgabapentin 300 mg oral capsule 600 mg, 2, capsule, By Mouth, 3 times a day, Dx: neuropathy (G90.09), # 180 capsule, Refills 2, Tot.Refills 2, Maintenance, 10/25/21 15:27:00 EDT, Route to Pharmacy Electronically, [facility]/pharmacy #[id number],Partial fill upon patient request if the prescrip... Start Date: 10/25/21 Stop Date: 01/23/22 Status: Orderedmultivitamin Multiple Vitamins oral tablet 1 tablet, By Mouth, Daily, # 30 tablet, 0 Refills, Maintenance, 08/24/21 12:20:00 EST, Tablet, [facility], Partial fill upon patient request if the prescription is for a schedule II opioid drug., 1 tablet By Mouth Daily, 183, cm, 08/24/21 11:1... Start Date: 08/24/21 Status: Orderedpantoprazole 40 mg oral delayed release tablet = 40 mg, By Mouth, Daily, # 30 tablet, 0 Refills, Maintenance, 08/24/21 12:28:00 EST, EC Tablet, 183, cm, 08/24/21 11:15:00 EST, Height, 72.4, kg, 08/21/21 4:18:00 EST, Dry Weight Start Date: 08/24/21 Status: Ordered Problem List Condition Effective Dates Status Health Status Informant Asthma since childhood uses rescue MDI 04/27/09 Active prn(Confirmed) Family history of aneurysm(Confirmed) Active GERD - Gastro-esophageal reflux Active disease(Confirmed) H/O alcohol abuse(Confirmed) Active Peripheral neuropathy(Confirmed) Active Tonsillectomy and Active adenoidectomy(Confirmed) Social History Social History Type Response Smoking Status 10 or more cigarettes (1/2 p ack or more)/day in last 30 days entered on: 02/25/20 Sex
--- OUTSIDE RECORDS SUMMARY | 2022-07-23 22:04 | XMS_ITS | Continuity of Care Document ---
:1975 Author Organization [facility] Address [address] [place] [address]- Care Team Providers Name Role Phone Amarjit Amezcua MD Primary Care Physician Encounter [facility] Date(s): 07/05/19 - 07/15/19 [facility] [address] [place] [address]- [facility] Attending Physician: Patricia Villaseñor Admitting Physician: Patricia Villaseñor Referring Physician: Patricia Villaseñor Allergies, Adverse Reactions, Alerts Substance Reaction Severity [...]
--- OUTSIDE RECORDS SUMMARY | 2022-07-23 22:04 | XMS_ITS | Continuity of Care Document ---
:1975 Author Organization [facility] Address [address] [place] [address]- Care Team Providers Name Role Phone Mirza Styles MD Primary Care Physician [place] [facility] [place] 10/24/21 - 12/26/21 [facility] [address] [place], [place] [address] Attending Physician: Mirza Styles MD Allergies, Adverse Reactions, Alerts No Known Allergies Immunizations Given and Recorded Vaccine Date Status Refusal Reason tetanus-diphtheria toxoids (Td) 02/07/05 Given Medications albuterol CFC free 90 mcg/inh inhalation aerosol 180 mcg, 2, puffs, Inhalation, Every 4 hours, PRN, # 6.7 Gm, Refills 0, Tot. Refills 0, Maintenance,08/24/21 12:19:00 EST, Inhaler, Route to Pharmacy Electronically, [id number], [facility]/pharmacy #[id number], 183, cm, 08/24/21 11:15:00... Start Date: [...] 10/25/21 15:27:00 EDT, Route to Pharmacy Electronically, [facility]/pharmacy #1234,Partial fill upon patient request if the [...]
--- OUTSIDE RECORDS SUMMARY | 2022-07-23 22:04 | XMS_ITS | Continuity of Care Document ---
:1975 Author Organization [facility] Address [address] [place] [address]- Care Team Providers Name Role Phone Mirza Styles MD Primary Care Physician [place] [facility] [place](s): 11/26/21 - 12/26/21 [facility] [address] [place], [place] [address] Attending Physician: Patricia Villaseñor Allergies, Adverse Reactions, Alerts No Known Allergies Immunizations Given and Recorded Vaccine Date Status Refusal Reason tetanus-diphtheria toxoids (Td) 02/07/05 Given Medications albuterol CFC free 90 mcg/inh inhalation aerosol 180 mcg, 2, puffs, Inhalation, Every 4 hours, PRN, # 6.7 Gm, Refills 0, Tot. Refills 0, Maintenance,08/24/21 12:19:00 EST, Inhaler, Route to Pharmacy Electronically, [id number], [facility]/pharmacy #1234, 183, cm, 08/24/21 11:15:00... Start Date: [...] 10/25/21 15:27:00 EDT, Route to Pharmacy Electronically, [facility]/pharmacy #1234,Partial fill upon patient request if the [...]
--- OUTSIDE RECORDS SUMMARY | 2022-07-23 22:04 | XMS_ITS | Continuity of Care Document ---
:1975 Author Organization [facility] Address [address] [place] [address]- Care Team Providers Name Role Phone Amarjit Amezcua MD Primary Care Physician Encounter [facility] Date(s): 06/14/20 - 07/14/20 [facility] [address] [place], [place] [address] Attending Physician: Patricia Villaseñor Allergies, Adverse Reactions, Alerts Substance Reaction Severity Status NKA Active Immunizations Given and Recorded Vaccine Date Status Refusal Reason tetanus-diphtheria toxoids (Td) 02/07/05 Given Medications busPIRone 5 mg oral tablet 5 mg, 1, tablet, By Mouth, 2 times a day, # 60 tablet, Refills 3, Tot. Refills 3, Maintenance, 05/03/20 10:33:00 EDT, Route to Pharmacy Electronically, [facility]/pharmacy #[id number], 183, cm, 02/25/20 22:23:00 EDT, Height, 75, kg, 02/25/20 22:23:00 EDT, Dry Weight Start Date: 05/03/20 Status: Orderedgabapentin 100 mg oral capsule See Instructions, 1 cap PO q HS x 3 days then increase to 1 cap PO BID, # 60 tablet, Refills 0, Tot.Refills 0, Maintenance, 04/28/20 16:44:00 EDT, Instructions Replace Required Details, Route to Pharmacy Electronically, [facility]/pharmacy #1234, 183, cm, 0... Start Date: 04/28/20 Status: Orderedgabapentin 100 mg oral capsule See Instructions, 1 cap PO q AM and 1 cap PO q noon. Take in conjuction with 300 mg cap at night, # 60 tablet, Refills 3, Tot. Refills 3, Maintenance, 05/03/20 10:25:00 EDT, Instructions Replace Required Details, Route to Pharmacy Electronically, C... Start Date: 05/03/20 Status: Orderedgabapentin 300 mg oral capsule 300 mg, 1, capsule, By Mouth, Daily at bedtime, Take in conjuction with 100 mg PO q AM and q noon., # 30 capsule, Refills 11, Tot. Refills 11, Maintenance, 05/03/20 10:28:00 EDT, Route to Pharmacy Electronically, [facility]/pharmacy #1234, 183, cm, 02/25/20... Start Date: 05/03/20 Status: OrderedVistaril pamoate 25 mg oral capsule 1 capsule = 25 mg, By Mouth, 4 times a day, PRN for anxiety, # 40 capsule, 0 Refills, Acute 05/03/2110:37:00 EDT, 05/03/20 10:36:00 EDT, Capsule, [facility], 183, cm, 02/25/20 22:23:00 EDT, Height, [...]
--- OUTSIDE RECORDS SUMMARY | 2022-07-23 22:04 | XMS_ITS | Continuity of Care Document ---
:1975 Author Organization [facility] Address [address] [place] [address]- Care Team Providers Name Role Phone Amarjit Amezcua MD Primary Care Physician Encounter [facility] Date(s): 03/29/20 - 04/28/20 [facility] [address] [place] [address]- [facility] Allergies, Adverse Reactions, Alerts Substance Reaction Severity Status NKA Active Immunizations Given and Recorded Vaccine Date Status Refusal Reason tetanus-diphtheria toxoids (Td) 02/07/05 Given Medications gabapentin 100 mg oral capsule See Instructions, 1 cap PO q HS x 3 days then increase to 1 cap PO BID, # 60 tablet, Refills 0, Tot.Refills 0, Maintenance, 04/28/20 16:44:00 EDT, Instructions Replace Required Details, Route to Pharmacy Electronically, [facility]/pharmacy #[id number], 183, cm, 0... Start Date: 04/28/20 Status: Ordered Problem List Condition Effective Dates [...]
--- OUTSIDE RECORDS SUMMARY | 2022-07-23 22:04 | XMS_ITS | Continuity of Care Document ---
:1975 Author Organization [facility] Address [address] [place] [address]- Care Team Providers Name Role Phone Amarjit Amezcua MD Primary Care Physician Encounter [facility] [place] Date(s): 02/28/20 - 03/29/20 [facility] [address] [place] [address]- [facility] Allergies, Adverse Reactions, Alerts Substance Reaction [...]
--- OUTSIDE RECORDS SUMMARY | 2022-07-23 22:04 | XMS_ITS | Continuity of Care Document ---
:1975 Author Organization [facility] Address [address] [place] [address]- Care Team Providers Name Role Phone Amarjit Amezcua MD Primary Care Physician [place] [facility] [place] 05/04/20 - 06/03/20 [facility] [address] [place], [place] [address] Allergies, Adverse Reactions, Alerts Substance Reaction Severity Status NKA Active Immunizations Given and Recorded Vaccine Date Status Refusal Reason tetanus-diphtheria toxoids (Td) 02/07/05 Given Medications busPIRone 5 mg oral tablet 5 mg, 1, tablet, By Mouth, 2 times a day, # 60 tablet, Refills 3, Tot. Refills 3, Maintenance, 05/03/20 10:33:00 EDT, Route to Pharmacy Electronically, [facility]/pharmacy #1234, 183, cm, 02/25/20 22:23:00 EDT, Height, [...] 05/03/20 10:28:00 EDT, Route to Pharmacy Electronically, [facility]/pharmacy #1234, 183, cm, 02/25/20... Start Date: 05/03/20 [...]
--- OUTSIDE RECORDS SUMMARY | 2022-07-23 22:04 | XMS_ITS | Continuity of Care Document ---
:1975 Author Organization [facility] Address [address] [place] [address]- Care Team Providers Name Role Phone Amarjit Amezcua MD Primary Care Physician Encounter [facility] Date(s): 03/06/20 - 04/05/20 [facility] [address] [place] [address]- [facility] Attending Physician: Patricia Villaseñor Allergies, Adverse Reactions, [...]
--- OUTSIDE RECORDS SUMMARY | 2022-07-23 22:04 | XMS_ITS | Continuity of Care Document ---
:1975 Author Organization [facility] Address [address] [place] [address]- Care Team Providers Name Role Phone Mirza Styles MD Primary Care Physician [place] [facility] [place] 10[place]24[place]21 - 11/23/21 [facility] [address] [place], [place] [address] Allergies, Adverse Reactions, Alerts No Known Allergies Immunizations Given and Recorded Vaccine Date Status Refusal Reason tetanus-diphtheria toxoids (Td) 02/07/05 Given Medications albuterol CFC free 90 mcg/inh inhalation aerosol 180 mcg, 2, puffs, Inhalation, Every 4 hours, PRN, # 6.7 Gm, Refills 0, Tot. Refills 0, Maintenance,08/24/21 12:19:00 EST, Inhaler, Route to Pharmacy Electronically, [id number], [facility]/pharmacy #[id number], 183, cm, 08/24/21 11:15:00... Start Date: [...] 10/25/21 15:27:00 EDT, Route to Pharmacy Electronically, [facility]/pharmacy #[id number],Partial fill upon patient request if the prescrip... Start Date: 10/25/21 Stop Date: 01/23/22 Status: Orderedmultivitamin Multiple Vitamins oral tablet 1 tablet, By Mouth, Daily, # 30 tablet, 0 Refills, Maintenance, 08/24/21 12:20:00 EST, Tablet, [facility]/pharmacy #[id number], Partial fill upon patient request if [...]
--- OUTSIDE RECORDS SUMMARY | 2022-07-23 22:04 | XMS_ITS | Continuity of Care Document ---
:1975 Author Organization [facility] Address [address] [place] [address]- Care Team Providers Name Role Phone Amarjit Amezcua MD Primary Care Physician Encounter [facility] Date(s): 07/05/19 - 07/05/[address] [address]- [facility] Discharge Disposition: A-D/C Home Attending Physician: Ad Echeverria MD Admitting Physician: Ad Echeverria MD Referring Physician: Not on Staff, Referring MD Allergies, Adverse Reactions, Alerts Substance Reaction Severity Status NKA Active Immunizations Given and Recorded Vaccine Date Status Refusal Reason tetanus-diphtheria toxoids (Td) 02/07/05 Given Problem List Condition Effective Dates Status Health Status Informant Asthma since childhood uses rescue MDI 04/27/09 Active prn(Confirmed) Family history of aneurysm(Confirmed) Active GERD - Gastro-esophageal reflux Active disease(Confirmed) H/O alcohol abuse(Confirmed) Active Tonsillectomy and Active adenoidectomy(Confirmed) Results Radiology Reports Exam Date Time Procedure Performing Provider Status 07/05/19 3:13 PM Elbow Min 3 Views Right Maryana Guajardo; Anastasiia (Ve rified) Notes:(Elbow Min 3 Views Right) Reason For Exam: PainRESULT: Elbow Min 3 Views Right Elbow 3 Views Right Reason: Pain FINDINGS: Area small bony density related to the inferior-medial aspect of the medial epicondyles. Differential includes degenerative calcification and/or a avulsion. If fracture question age. I do notsee soft tissue swelling in this location but clinical correlation with this site recommended. Bony structures otherwise unremarkable. Negative fat pad sign, thus no evidence of joint effusion IMPRESSION: Small bony density related to inferior-medial aspect of the medial epicondyle. Could be degenerative, could be fracture, if fracture question age. WSN: [id number] Dictated By: Ad Potter MD Dictated Date/Time: 07/05/19 3:43 pm Reviewed By: Ad Potter MD Signed By: Ad Potter MD Signed Date/Time: 07/05/19 3:43 pm Transcribed By: SULLY Transcribed Date/Time: 07/05/19 3:41 pm Vital Signs Most recent to oldest [Reference Range]: 1 Height 183 cm (07/05/19 3:36 PM) Weight 73.3 kg (07/05/19 3:36 PM) Body Mass Index [18.5-24.99] 21.89 (07/05/19 3:36 PM) Social History Social History Type Response Smoking Status 10 or more cigarettes (1/2 p ack or more)/day in last 30 days entered on: 02/24/19 Sex
--- OUTSIDE RECORDS SUMMARY | 2022-07-23 22:04 | XMS_ITS | Continuity of Care Document ---
:1975 Author Organization [facility] Address [address] [place] [address]- Care Team Providers Name Role Phone Amarjit Amezcua MD Primary Care Phys[id number] Date[facility] 04/28/20 - 05/31/20 [facility] [address] [place] [address]- [facility] Attending Physician: Alisha Zabala MD Allergies, Adverse Reactions, Alerts Substance Reaction Severity Status NKA Active Immunizations Given and Recorded Vaccine Date Status Refusal Reason tetanus-diphtheria toxoids (Td) 02/07/05 Given Medications busPIRone 5 mg oral tablet 5 mg, 1, tablet, By Mouth, 2 times a day, # 60 tablet, Refills 3, Tot. Refills 3, Maintenance, 05/03/20 10:33:00 EDT, Route to Pharmacy Electronically, [facility]/pharmacy #[id number], 183, cm, 02/25/20 22:23:00 EDT, Height, 75, [...] Replace Required Details, Route to Pharmacy Electronically, [facility]/pharmacy #[id number], 183, cm, 0... Start Date: 04/28/20 Status: Orderedgabapentin 300 mg oral capsule 300 mg, 1, capsule, By Mouth, Daily at bedtime, Take in conjuction with 100 mg PO q AM and q noon., # 30 capsule, Refills 11, Tot. Refills 11, Maintenance, 05/03/20 10:28:00 EDT, Route to Pharmacy Electronically, [facility]/pharmacy #[id number], 183, cm, 02/25/20... Start Date: 05/03/20 Status: OrderedVistaril pamoate 25 mg oral capsule 1 capsule = 25 mg, By Mouth, 4 times a day, PRN for anxiety, # 40 capsule, 0 Refills, Acute 05/03/2110:37:00 EDT, 05/03/20 10:36:00 EDT, Capsule, [facility]/pharmacy #1234, 183, cm, 02/25/20 22:23:00 EDT, [...]
--- OUTSIDE RECORDS SUMMARY | 2022-07-23 22:04 | XMS_ITS | Continuity of Care Document ---
:[address] [facility] Address [address] [place] [address]- Care Team Providers Name Role Phone Amarjit Amezcua MD Primary Care Physician Encounter [facility] Date(s): 03/08/20 - 04/07/20 [facility] [address] [place] [address]- [facility] Allergies, Adverse Reactions, Alerts Substance Reaction Severity [...]
--- OUTSIDE RECORDS SUMMARY | 2022-07-23 22:04 | XMS_ITS | Continuity of Care Document ---
:[address] [facility] Address [address] [place] [address]- Care Team Providers Name Role Phone Mirza Styles MD Primary Care Physician Encounter [facility] [place] Date(s): 10/25/21 - 11/24/21 [facility] [address] [place], [place] [address] Attending Physician: Patricia Villaseñor Allergies, Adverse Reactions, Alerts No Known Allergies Immunizations Given and Recorded Vaccine Date Status Refusal Reason tetanus-diphtheria toxoids (Td) 02/07/05 Given Medications albuterol CFC free 90 mcg/inh inhalation aerosol 180 mcg, 2, puffs, Inhalation, Every 4 hours, PRN, # 6.7 Gm, Refills 0, Tot. Refills 0, Maintenance,08/24/21 12:19:00 EST, Inhaler, Route to Pharmacy Electronically, [id number], [facility]/pharmacy #[id number], 183, cm, 08/24/21 11:15:00... Start Date: [...] 10/25/21 15:27:00 EDT, Route to Pharmacy Electronically, [facility]/pharmacy #[id number],Partial fill upon patient request if the [...]
--- OUTSIDE RECORDS SUMMARY | 2022-07-23 22:04 | XMS_ITS | Continuity of Care Document ---
:1975 Author Organization [facility] Address [address] [place] [address]- Care Team Providers Name Role Phone Amarjit Amezcua MD Primary Care Physician [place] [facility] [place]): [place]20 [place] 08/26/20 [facility] [address] [place] [address]- Encounter Diagnosis Neuropathy (Discharge Diagnosis) - 07/27/20 Allergies, Adverse Reactions, Alerts Substance Reaction Severity Status NKA Active Immunizations Given and Recorded Vaccine Date Status Refusal Reason tetanus-diphtheria toxoids (Td) 02/07/05 Given Medications busPIRone 5 mg oral tablet 1, tablet, By Mouth, 2 times a day, # 180 tablet, Refills 1, Tot. Refills 0, Maintenance, 08/23/20 12:16:00 EST, Route to Pharmacy Electronically, [id number], 183, cm, 02/25/20 22:23:00 EDT, Height, 75, kg, 02/25/20 22:23:00 EDT, Dry Weight Start Date: 08/23/20 Status: Orderedgabapentin 100 mg oral capsule See Instructions, 1 cap PO q HS x 3 days then increase to 1 cap PO BID, # 60 tablet, Refills 0, Tot.Refills 0, Maintenance, 04/28/20 16:44:00 EDT, Instructions Replace Required Details, Route to Pharmacy Electronically, [facility]/pharmacy #[id number], 183, cm, 0... Start Date: 04/28/20 [...] 05/03/20 Status: Orderedgabapentin 300 mg oral capsule 600 mg, 2, capsule, By Mouth, 3 times a day, # 180 capsule, Refills 5, Tot. Refills 5, Maintenance, 07/27/20 17:13:00 EST, Route to Pharmacy Electronically, [facility]/pharmacy #[id number], 183, cm, 02/25/20 22:23:00 EDT, Height, 75, kg, 02/25/20 22:23:00 EDT, Dry... Start Date: 07/27/20 Status: OrderedVistaril pamoate 25 mg oral capsule [...] Status Clinical Serv ice Informant Neuropathy Discharge 07/27/20 Diagnosis Social History Social History Type Response Smoking Status 10 or more cigarettes (1/2 p ack or more)/day in last 30 days entered on: 02/25/20 Sex
--- OUTSIDE RECORDS SUMMARY | 2022-07-23 22:04 | XMS_ITS | Continuity of Care Document ---
:[address] [facility] Address [address] [place] [address]- Care Team Providers Name Role Phone Amarjit Amezcua MD Primary Care Physician Encounter [facility] Date(s): 05/06/19 - 09/03/19 [facility] [address] [place] [address]- [facility] Attending Physician: Amarjit Amezcua MD Allergies, Adverse [...]
--- OUTSIDE RECORDS SUMMARY | 2022-07-23 22:04 | XMS_ITS | Continuity of Care Document ---
:[address] [facility] Address [address] [place] [address]- Care Team Providers Name Role Phone Amarjit Amezcua MD Primary Care Physician Encounter [facility] [place] Date(s): 04/28/20 - 05/28/20 [facility] [address] [place] [address]- [facility] Allergies, Adverse Reactions, Alerts Substance Reaction Severity Status NKA Active Immunizations Given and Recorded Vaccine Date Status Refusal Reason tetanus-diphtheria toxoids (Td) 02/07/05 Given Medications busPIRone 5 mg oral tablet 5 mg, 1, tablet, By Mouth, 2 times a day, # 60 tablet, Refills 3, Tot. Refills 3, Maintenance, 05/03/20 10:33:00 EDT, Route to Pharmacy Electronically, [facility]/pharmacy #[id number], 183, cm, 02/25/20 22:23:00 [...] 05/03/20 10:28:00 EDT, Route to Pharmacy Electronically, [facility]/pharmacy #[id number], 183, cm, 02/25/20... Start [...]
--- OUTSIDE RECORDS SUMMARY | 2022-07-23 22:05 | XMS_ITS | Continuity of Care Document ---
:1975 Author Organization [facility] Address [address] [place] [address]- Care Team Providers Name Role Phone Amarjit Amezcua MD [id number] 07[facility]14/20 [facility] [address] [place], [place] [address] Attending Physician: Amarjit Amezcua MD Allergies, Adverse [...]
--- OUTSIDE RECORDS SUMMARY | 2022-07-23 22:05 | XMS_ITS | Continuity of Care Document ---
:1975 Author Organization [facility] Address [address] [place] [address]- Care Team Providers Name Role Phone Amarjit Amezcua MD Primary Care Physician [place] [facility] 03/01[place]20 - 03/31/20 [facility] [address] [place] [address]- [facility] Allergies, Adverse Reactions, Alerts Substance Reaction Severity [...]
--- OUTSIDE RECORDS SUMMARY | 2022-07-23 22:05 | XMS_ITS | Continuity of Care Document ---
:1975 Author Organization [facility] Address [address] [place] [address]- Care Team Providers Name Role Phone Amarjit Amezcua MD Primary Care Physician [place] [facility] [place](s): 04/10/20 - 05/10/20 [facility] [address] [place] [address]- [facility] Allergies, Adverse Reactions, Alerts Substance Reaction Severity Status NKA Active Immunizations Given and Recorded Vaccine Date Status Refusal Reason tetanus-diphtheria toxoids (Td) 02/07/05 Given Medications busPIRone 5 mg oral tablet 5 mg, 1, tablet, By Mouth, 2 times a day, # 60 tablet, Refills 3, Tot. Refills 3, Maintenance, 05/03/20 10:33:00 EDT, Route to Pharmacy Electronically, [facility]/pharmacy #[id number], 183, cm, 02/25/20 22:23:00 [...] 05/03/20 10:28:00 EDT, Route to Pharmacy Electronically, [facility]/pharmacy #[id number], 183, cm, 02/25/20... Start Date: 05/03/20 Status: OrderedVistaril pamoate 25 mg oral capsule 1 capsule = 25 mg, By Mouth, 4 times a day, PRN for anxiety, # 40 capsule, 0 Refills, Acute 05/03/2110:37:00 EDT, 05/03/20 10:36:00 EDT, Capsule, [facility]/pharmacy #1234, 183, cm, 02/25/20 22:23:00 [...]
--- OUTSIDE RECORDS SUMMARY | 2022-07-23 22:05 | XMS_ITS | Continuity of Care Document ---
:1975 Author Organization [facility] Address [address] [place] [address]- Care Team Providers Name Role Phone Amarjit Amezcua MD Primary Care Physician [place] [facility] [place] 03/24[place]20 - 04/23/20 [facility] [address] [place] [address]- [facility] Allergies, Adverse Reactions, Alerts Substance Reaction Severity [...]
[2022-07-23 23:21] LABS: Reflex Lactate? Lactic Acid Added
[2022-07-23] MEDS: iohexoL 350 MG/ML 100 ML INFUS..BTL IV (23:29)
[2022-07-23] MEDS: Enoxaparin Sodium 40 MG/0.4 ML SYRINGE SUBCUT (23:39)
[2022-07-23] MEDS: Lactated Ringers 1,000 ML 100 ML IVCONT (23:39)
--- NOTE | 2022-07-23 23:45 | PC.NURSE ---
Medicated pt per sep. Notified SALOME Heath
[2022-07-24] MEDS: PHENobarbitaL sodium 130 MG/ML VIAL IM Q3Hx2 261 MG IM ×2 (00:25→03:56)
[2022-07-24] MEDS: 0.9 % Sodium Chloride Flush 3 ML SYRINGE IVFLUSH (00:26)
--- NOTE | 2022-07-24 00:31 | PC.NURSE ---
Pt aox3 in no apparent distress. Medicated with phenobarbital as ordered. Pt tolerated well. Pt reports no pain at this time and feeling much better. Tremors are not visible are this time. Pt denies visual and auditory hallucinations. Denies N/V/D. Requesting food and liquids. Pt aware of plan of care.
--- NOTE | 2022-07-24 00:38 | MHC.EDTECH ---
This television technician brought patient two sandwiches and a pitcher of ice water.
[2022-07-24 01:01] LABS: Amphetamine Screen Urine Not Detected (Not Detect); Barbiturates, Urine POSITIVE (Not Detect); Benzodiazepines Screen Urine Not Detected (Not Detect); Cannabinoid Screen Urine Not Detected (Not Detect); Cocaine Screen Urine Not Detected (Not Detect); Fentanyl, urine Not Detected (Not Detect); Opiate Screen Urine Not Detected (Not Detect); Phencyclidine Screen Urine Not Detected (Not Detect)
[2022-07-24 04:03] VITALS: BP 132/80; PULSE 80; RESP 16; TEMP 37.2; O2SAT 98
[2022-07-24 06:50] LABS: MANUAL DIFF FLAG NO
[2022-07-24 06:56] LABS: Basophils Absolute Auto 0.1 X10*3/uL (0.0-0.2); Basophils Percent Auto 1.4 % (0-2); Eosinophils Absolute Auto 0.1 X10*3/uL (0.0-0.4); Eosinophils Percent Auto 2.6 % (0-4); Hematocrit 34.3 % (42.0-52.0); Hemoglobin 12.2 g/dl (14.0-18.0); Imm Gran Abs Auto 0.01 X10*3/uL (0.00-0.03); Imm Gran Pct Auto 0.2 % (0.0-0.4); Lymphocytes Absolute Auto 1.4 X10*3/uL (1.2-4.9); Lymphocytes Percent Auto 32.8 % (20-40); Mean Corpuscular HGB Conc 35.6 g/dl (31.0-36.0); Mean Corpuscular Hemoglobin 35.8 pg (27.0-33.0); Mean Corpuscular Volume 100.6 fL (80.0-98.0); Monocytes Absolute Auto 0.7 X10*3/uL (0.1-1.2); Monocytes Percent Auto 15.9 % (2-11); Neutrophils Percent Auto 47.1 % (45-73); Red Blood Count 3.41 X10*6/uL (4.60-5.80); Red Cell Distribution Width 11.4 % (11.0-16.0); White Blood Count 4.3 X10*3/uL (4.8-10.8)
[2022-07-24 06:57] LABS: Platelet Count 73 X10*3/uL (160-400)
--- NOTE | 2022-07-24 07:21 | PHA.MEDREC ---
Pharmacy Consult ? Medication Reconciliation Pharmacy has completed the medication reconciliation.
[2022-07-24 07:24] LABS: Anion Gap 15 (12-20); Blood Urea Nitrogen 7 mg/dL (9-16); Carbon Dioxide 28 mmol/L (22-29); Chloride 94 mmol/L (96-108); Creatinine Clr Calc Pharmacy 153.5; Estimated Glomerular Filt Rate > 60; Glucose Random 82 mg/dL (60-115); Potassium 3.6 mmol/L (3.3-5.1); Sodium 133 mmol/L (135-145)
[2022-07-24 07:58] LABS: Calcium 9.2 mg/dL (8.4-10.2)
--- NOTE | 2022-07-24 08:25 | PC.NURSE ---
Pt asleep at present, not wanting to be bothered at this time.
[2022-07-24 08:27] LABS: Magnesium 1.3 mg/dL (1.6-2.6)
[2022-07-24] MEDS: Magnesium Sulfate/D5W 1 GM/100 ML PIGGYBACK IV (09:50)
[2022-07-24] MEDS: Potassium Chloride Packet 20 MEQ PACKET PO (10:18)
[2022-07-24] MEDS: Thiamine HCL 100 MG TABLET PO (10:18)
[2022-07-24] MEDS: Folic Acid 1 MG TABLET PO (10:18)
[2022-07-24] MEDS: Lactated Ringers 1,000 ML 100 ML IVCONT (10:19)
[2022-07-24 10:22] VITALS: BP 118/79; PULSE 72; TEMP 35.6; O2SAT 95
--- NOTE | 2022-07-24 10:59 | PC.NURSE ---
Pt ambulatory to and from restroom, voided. Changed into hospital pants. Pt took medication as indicated in MAR. bedside explaining plan of care to PT to keep her for another day or so.
--- NOTE | 2022-07-24 15:30 | MHC.RECOVRN ---
Chart reviewed, attempted to meet with pt in Overflow 9. Pt soundly sleeping, did not wake to voice. Recovery resources left at bedside. RN aware and will [place] t/w when awake.
[2022-07-24] MEDS: Magnesium Oxide 400 MG TABLET PO (17:47)
--- NOTE | 2022-07-24 17:48 | P.PNIM_ITS ---
Subjective Subjective Date of Service: 07/24/22 Interval History: alcohol withdrawal,hypomagnesemia Review of Systems still has tremor and feel anxious Denies any nausea or vomiting or abdominal pain fever chills. Physical Exam Vital Signs: Vital Signs: Last Vital Signs Temp 96.0 F L 07/24/22 10:22 Pulse 72 07/24/22 10:22 Resp 16 07/24/22 04:03 BP 118/79 07/24/22 10:22 Pulse Ox 95 07/24/22 10:22 O2 Del Method 07/24/22 10:22 BMI result Body Mass Index 21.7 Appearance: Alert.? Oriented X3.? not in distress.? cvs: rrr, [id number] , no murmur res: clear to auscultation ,no rhonchii or wheezing abd: no rebound or guarding ,nt, bs present. ext pulses present , no cyanosis neuro: axo3 , nonfocal.,tremer /anxious. Objective Data Active Medications Acetaminophen (Acetaminophen 325 Mg Tablet) 650 mg PO Q6H PRN PRN Reason: Pain, Mild (Pain Scale 1-3) Docusate Sodium (Docusate Sodium 100 Mg Capsule) 100 mg PO DAILY PRN PRN Reason: Constipation Enoxaparin Sodium (Enoxaparin Sodium 40 Mg/0.4 Ml Syringe) 40 mg SUBCUT Q24H [facility] Last Admin: 07/23/22 23:39 Dose: 40 mg Documented By: HOSSEIN Folic Acid (Folic Acid 1 Mg Tablet) 1 mg PO DAILY [facility] Last Admin: 07/24/22 10:18 Dose: 1 mg Documented By: NADEGE Hydroxyzine HCl (Hydroxyzine Hcl 25 Mg Tablet) 25 mg PO Q6H PRN PRN Reason: anxiety/restlessness Lactated Ringer's (Lr) 1,000 mls @ 100 mls/hr IVCONT .Q10H [facility] Last Admin: 07/24/22 10:19 Dose: 100 mls/hr Documented By: NADEGE Magnesium Oxide (Magnesium Oxide 400 Mg Tablet) 400 mg PO BIDPC [facility] Last Admin: 07/24/22 17:47 Dose: 400 mg Documented By: NADEGE Ondansetron HCl (Ondansetron Hcl 4 Mg/2 Ml Vial) 4 mg IVPUSH Q8H PRN PRN Reason: Nausea and Vomiting Pharmacy Consult (Consult Rx Etoh Phenob Im/Po) 1 each MISCELLANE ONCE PRN; Protocol PRN Reason: Consult order Phenobarbital (Phenobarbital 15 Mg Tablet) 45 mg PO BID [facility] Stop: 07/26/22 09:01 Phenobarbital (Phenobarbital 15 Mg Tablet) 15 mg PO BID [facility] Stop: 07/28/22 09:01 Phenobarbital (Phenobarbital 15 Mg Tablet) 15 mg PO DAILY [facility] Stop: 07/30/22 09:01 Sodium Chloride (0.9 % Sodium Chloride Flush 3 Ml Syringe) 3 ml IVFLUSH QSHIFT [facility] Last Admin: 07/24/22 15:28 Dose: Not Given Documented By: NADEGE Non-Admin Reason: IV Running Thiamine HCl (Thiamine Hcl 100 Mg Tablet) 100 mg PO DAILY [facility] Last Admin: 07/24/22 10:18 Dose: 100 mg Documented By: NADEGE Labs CBC & Chem 7: 07/24/22 06:42 07/24/22 06:42 Labs: Laboratory Results - last 24 hr 07/23/22 07/23/22 07/23/22 19:45 19:45 19:45 MCV 101.0 H MCH 36.4 H MCHC 36.0 RDW 11.5 Plt Count 100 L MPV 10.7 Immature Gran % (Auto) Neut % (Auto) Lymph % (Auto) Drew % (Auto) Eos % (Auto) Baso % (Auto) Lymph # (Auto) Drew # (Auto) Eos # (Auto) Baso # (Auto) Abs Immat Gran (auto) Absolute Neuts (auto) Absolute Nucleated RBC 0.000 Nucleated RBC % (auto) 0.0 VBG pH VBG pCO2 VBG pO2 VBG HCO3 VBG O2 Saturation VBG Base Excess Anion Gap 23 H Estim Creat Clear Calc 118.0 Estimated GFR > 60 Random Glucose 136 H Lactic Acid Lactic Acid F/U @ 2Hr Calcium 10.0 Magnesium 1.2 L* Total Bilirubin 2.0 H AST 196 H ALT 122 H Alkaline Phosphatase 122 H Total Protein 7.8 Albumin 4.7 Lipase 96 H Salicylates < 5.0 L Urine Opiates Screen Urine Fentanyl Screen Acetaminophen < 1 Ur Barbiturates Screen Ur Phencyclidine Scrn Ur Amphetamines Screen U Benzodiazepines Scrn Urine Cocaine Screen U Marijuana (THC) Screen Ethyl Alcohol < 10 Influenza Type A (PCR) Influenza Type B (PCR) RSV RNA Qual (PCR) SARS-CoV-2 RNA (RT-PCR) 07/23/22 07/23/22 07/23/22 21:16 21:17 21:19 MCV MCH MCHC RDW Plt Count MPV Immature Gran % (Auto) Neut % (Auto) Lymph % (Auto) Drew % (Auto) Eos % (Auto) Baso % (Auto) Lymph # (Auto) Drew # (Auto) Eos # (Auto) Baso # (Auto) Abs Immat Gran (auto) Absolute Neuts (auto) Absolute Nucleated RBC Nucleated RBC % (auto) VBG pH 7.43 VBG pCO2 37 VBG pO2 41 VBG HCO3 25 VBG O2 Saturation 62.0 VBG Base Excess 1.3 Anion Gap Estim Creat Clear Calc Estimated GFR Random Glucose Lactic Acid 2.3 H* Lactic Acid F/U @ 2Hr Calcium Magnesium Total Bilirubin AST ALT Alkaline Phosphatase Total Protein Albumin Lipase Salicylates Urine Opiates Screen Urine Fentanyl Screen Acetaminophen Ur Barbiturates Screen Ur Phencyclidine Scrn Ur Amphetamines Screen U Benzodiazepines Scrn Urine Cocaine Screen U Marijuana (THC) Screen Ethyl Alcohol Influenza Type A (PCR) NEGATIVE Influenza Type B (PCR) NEGATIVE RSV RNA Qual (PCR) NEGATIVE SARS-CoV-2 RNA (RT-PCR) NEGATIVE 07/23/22 07/24/22 07/24/22 23:44 00:41 06:42 MCV 100.6 H MCH 35.8 H MCHC 35.6 RDW 11.4 Plt Count 73 L D MPV 11.0 Immature Gran % (Auto) 0.2 Neut % (Auto) 47.1 Lymph % (Auto) 32.8 Drew % (Auto) 15.9 H Eos % (Auto) 2.6 Baso % (Auto) 1.4 Lymph # (Auto) 1.4 Drew # (Auto) 0.7 Eos # (Auto) 0.1 Baso # (Auto) 0.1 Abs Immat Gran (auto) 0.01 Absolute Neuts (auto) 2.0 Absolute Nucleated RBC 0.000 Nucleated RBC % (auto) 0.0 VBG pH VBG pCO2 VBG pO2 VBG HCO3 VBG O2 Saturation VBG Base Excess Anion Gap Estim Creat Clear Calc Estimated GFR Random Glucose Lactic Acid Lactic Acid F/U @ 2Hr 1.0 Calcium Magnesium Total Bilirubin AST ALT Alkaline Phosphatase Total Protein Albumin Lipase Salicylates Urine Opiates Screen Not Detected Urine Fentanyl Screen Not Detected Acetaminophen Ur Barbiturates Screen POSITIVE H Ur Phencyclidine Scrn Not Detected Ur Amphetamines Screen Not Detected U Benzodiazepines Scrn Not Detected Urine Cocaine Screen Not Detected U Marijuana (THC) Screen Not Detected Ethyl Alcohol Influenza Type A (PCR) Influenza Type B (PCR) RSV RNA Qual (PCR) SARS-CoV-2 RNA (RT-PCR) 07/24/22 07/24/22 06:42 07:58 MCV MCH MCHC RDW Plt Count MPV Immature Gran % (Auto) Neut % (Auto) Lymph % (Auto) Drew % (Auto) Eos % (Auto) Baso % (Auto) Lymph # (Auto) Drew # (Auto) Eos # (Auto) Baso # (Auto) Abs Immat Gran (auto) Absolute Neuts (auto) Absolute Nucleated RBC Nucleated RBC % (auto) VBG pH VBG pCO2 VBG pO2 VBG HCO3 VBG O2 Saturation VBG Base Excess Anion Gap 15 Estim Creat Clear Calc 153.5 Estimated GFR > 60 Random Glucose 82 Lactic Acid Lactic Acid F/U @ 2Hr Calcium 9.2 D Magnesium 1.3 L* Total Bilirubin AST ALT Alkaline Phosphatase Total Protein Albumin Lipase Salicylates Urine Opiates Screen Urine Fentanyl Screen Acetaminophen Ur Barbiturates Screen Ur Phencyclidine Scrn Ur Amphetamines Screen U Benzodiazepines Scrn Urine Cocaine Screen U Marijuana (THC) Screen Ethyl Alcohol Influenza Type A (PCR) Influenza Type B (PCR) RSV RNA Qual (PCR) SARS-CoV-2 RNA (RT-PCR) Assessment and Plan (1) Alcohol abuse with withdrawal: Status: Acute (2) Hypomagnesemia: Status: Acute (3) Alcoholic ketoacidosis: Status: Acute Plan 46-year-old male with past medical history of alcohol abuse presents to the hospital with of call withdrawal # alcohol abuse with alcohol withdrawal - delirium? tremors, with visual hallucinations( somewhat improving) - no history of withdrawal seizures - patient started on phenobarb protocol - folic and thiamine supplement - care team consulted # alcoholic ketoacidosis - VBG shows normal pH improved with hydration . # hypomagnesemia - repleted with iv and po . - follow Mag level DVT prophylaxis:? Early ambulation ongoing inaptient need: Alcohol withdrawal requiring phenobarb, CIWA monitoring, in addition hypomagnesemia requiring IV repletion. Time Spent With Patient Time: Total time managing care of this patient today ____ minutes. Quality Stroke Does the patient have a stroke diagnosis?: No VTE Prior VTE?: No VTE Risk Level:: Medical - moderate - high VTE Device Contraindication: Treatment Not Indicated VTE Drug Contraindication: N/A - Med Ordered
[2022-07-24 17:49] VITALS: BP 115/78; PULSE 89; RESP 18; TEMP 36.7; O2SAT 98
[2022-07-24] MEDS: PHENobarbitaL 15 MG TABLET 45 MG PO (20:51)
[2022-07-24] MEDS: Thiamine HCL 100 MG TABLET 200 MG PO (20:52)
--- NOTE | 2022-07-24 20:54 | MHC.CM.PN ---
CM met with admitted pt in ED Over with bed assignment pending. Pt not engaged in CM interview, but did answer questions. Lives alone. No DME/services. No health insurance. Face sheet lists Medicaid PCC. Pt states he lost his job recently and does not have health insurance. Given financial services pamphlet. No PCP. No vaccinations. Pt very adamant that he will not get any. CM stressed to patient that the question was if he was not vaccinated; there is no pressure for him to be vaccinated if he chooses not to. D/C plan: Home without services. Pt will arrange transport home. Pt states he was given a list of detox/programs and he will need to call them.
[2022-07-24] MEDS: Enoxaparin Sodium 40 MG/0.4 ML SYRINGE SUBCUT (21:00)
--- NOTE | 2022-07-24 21:00 | PC.NURSE ---
Addendum entered by Yoli Drake RN 07/25/22 07:06: report given to SALOME Morales Original Note: report received from SALOME Urena pt is alert and oriented resting comfortably in bed no signs of acute distress notice breathing equally unlabored
[2022-07-24 21:19] VITALS: BP 116/64; PULSE 68; RESP 17; TEMP 35.8; O2SAT 98
[2022-07-25 01:54] VITALS: BP 105/59; PULSE 70; RESP 19; TEMP 36.4; O2SAT 98
[2022-07-25] MEDS: Lactated Ringers 1,000 ML 100 ML IVCONT ×3 (03:13→20:42)
[2022-07-25 05:23] VITALS: BP 125/81; PULSE 85; RESP 18; TEMP 36.8; O2SAT 97
[2022-07-25] MEDS: Folic Acid 1 MG TABLET PO (08:33)
[2022-07-25] MEDS: Magnesium Oxide 400 MG TABLET PO ×2 (08:33→17:12)
[2022-07-25] MEDS: PHENobarbitaL 15 MG TABLET 45 MG PO ×2 (08:34→21:17)
[2022-07-25] MEDS: Thiamine HCL 100 MG TABLET 200 MG PO (08:34)
[2022-07-25 10:25] LABS: Magnesium 1.5 mg/dL (1.6-2.6); Potassium 3.8 mmol/L (3.3-5.1)
--- NOTE | 2022-07-25 10:44 | MHC.RECOVRN ---
This automobile service writer went to meet w/ patient, patient was sleeping, not rousable to verbal stimuli. This automobile service writer will f/u at a later time.
--- NOTE | 2022-07-25 11:52 | PM.DS ---
DS: Providers Provider Date of Service: 07/26/22 Date of admission: 07/23/22 21:40 Primary care physician: Mirza Styles MD Consults: 07/23/22 19:51 Consult to Care Team Stat Comment: Reason for consultation: sude 07/25/22 11:44 Addiction Medicine Routine Consulting Provider: Addiction Covering Reason for consultation: alcohol use Has provider been notified: No DS: Diagnosis Discharge Diagnosis (1) Alcohol abuse with withdrawal: Status: Acute (2) Hypomagnesemia: Status: Acute (3) Alcoholic ketoacidosis: Status: Acute (4) Leucopenia: Status: Acute (5) Thrombocytopenia: Status: Acute (6) Elevated LFTs: Status: Acute DS: Summary Hospital Course Hospital Course: 46-year-old male with past medical history of alcohol abuse presents to hospital complaints of alcohol withdrawal.? Patient reports that he drinks about 10-20 shots of vodka daily, his last drink was the day prior, reports that he intentionally stop drinking because he is interested in the toxic.? Reports severe withdrawal, patient reports visual hallucination.? Reports no headache, no change in vision, no weakness numbness or tingling, no fever or chills, no chest pain, no abdominal pain nausea or vomiting, no diarrhea constipation, no urinary symptoms and no lower extremity edema.? On arrival to the ED patient hemodynamically stable no significant abnormal Labs are significant for WBC count of 7.2, hemoglobin of 14.7, hematocrit 40.8, CV of 101, pH of 7.43, lactic acid of 2.3 normalized with fluids, lead knees in 1.2, AST of 196, ALT of 122, alk-phos of 122, lipase of 96, positive barbiturates on UDS, alcohol level less than 10, viral serology negative. Hospital course: Patient was admitted for alcoholic withdrawal, also found to have hypomagnesemia: Started on phenobarb protocol, magnesium repleted: Alcohol withdrawal seems to be improving as well exam magnesium levels also improving. Given limited supply of p.o. magnesium monitor renal function and electrolytes outpatient with PCP and further management accordingly. Thrombocytopenia/leukopenia: Possibly related to alcohol use. Monitor CBC outpatient with PCP. Consider outpatient hematology evaluation if needed. Mild elevated LFTs: possibly related to alcohol use,possible hepatic steatosis on ct abdomen, Denies any abdominal pain or any new symptoms, Monitor lft's outpatient with PCP. Consider outpatientGI evaluation if needed. Patient was strongly advised to abstain from alcohol. seen by Above management discussed with the patient in detail length he understand and in agreement with above plan. Time spent 50 minute. Time Spent with Patient Time attestation: Total time managing care of this patient today ____ minutes. Discharge coordination time: Greater than 30 minutes Quality: Safe Use of Opioids Does Pt have an Active Cancer Diagnosis on the Problem List?: No Quality: Stroke Does the patient have a stroke diagnosis?: No Physical Exam Vital Signs: Vital Signs: Last Vital Signs BMI result vitals from 07/26/22 reviewed.seems fine Appearance: Alert.? Oriented X3.? not in distress.? cvs: rrr, [id number] , no murmur res: clear to auscultation ,no rhonchii or wheezing abd: no rebound or guarding ,nt, bs present. ext pulses present , no cyanosis neuro: axo3 , nonfocal.walking fine. DS: Data Data Completed and Pending Labs on day of discharge: Laboratory Results - last 24 hr 07/25/22 09:47 Potassium 3.8 Magnesium 1.5 L Imaging Chest x-ray: Radiologist's impression: ITS Impressions Abdomen/Pelvis CT 07/23/22 23:25 IMPRESSION: * No CT imaging evidence of pancreatitis. Please note that CT does not exclude very early pancreatitis. * Hepatic steatosis. * Nonobstructive 2 mm calculus, left kidney. Fleischner guidelines were followed. Additional Comments Additional comments: CT/CT abdomen pelvis w IV con IMPRESSION: *? No CT imaging evidence of pancreatitis. Please note that CT does not exclude very early pancreatitis. *? Hepatic steatosis. *? Nonobstructive 2 mm calculus, left kidney.? Discharge Plan Discharge Anticipated Discharge Date/Time: 07/25/22 11:47 Patient Disposition: Home, Self-Care Discharge Diagnosis: Alcohol withdrawal, hypomagnesemia, alcoholic ketoacidosis Referrals: Mirza Styles MD [Primary Care Provider] - 1 Week Discharge Medications: New docusate sodium 100 mg Capsule 100 mg PO DAILY PRN (Reason: Constipation) Qty: 30 0RF magnesium oxide 400 mg (241.3 mg magnesium) Tablet 400 mg PO BIDPC Qty: 8 0RF thiamine HCl (vitamin B1) 100 mg tablet 100 mg PO DAILY Qty: 30 0RF No Action No Known Home Meds Discharge Orders: Discharge Order (Routine); Ordered 07/26/22 Ordered By: Юлия Goodson Diet: Advance to usual diet Activity on Discharge: As tolerated Stand Alone Forms: Patient Portal Discharge page Other Ambulatory Orders: Basic Metabolic Panel Fasting (Routine) Timeframe: 1 Week Facility: [facility] - Location: Laboratory Ordered By: Юлия Goodson Complete Blood Count no Diff (Routine) Timeframe: 1 Week Facility: [facility] - Location: Laboratory Ordered By: Юлия Goodson Liver Panel (Routine) Timeframe: 1 Week Facility: [facility] - Location: Laboratory Ordered By: Юлия Goodson Magnesium (Routine) Timeframe: 1 Week Facility: [facility] - Location: Laboratory Ordered By: Юлия Goodson Care Plan Goals: Patient was admitted for alcoholic withdrawal, also found to have hypomagnesemia: Started on phenobarb protocol, magnesium repleted: Alcohol withdrawal seems to be improving as well exam magnesium levels also improving. Given limited supply of p.o. magnesium monitor renal function and electrolytes outpatient with PCP and further management accordingly. Thrombocytopenia/leukopenia:? Possibly related to alcohol use.? asymptomatic,Monitor CBC outpatient with PCP.? Consider outpatient hematology evaluation if needed.? Mild elevated LFTs:? possibly related to alcohol use, Denies any abdominal pain or any new symptoms, Monitor lft's outpatient with PCP.? Consider o utpatientGI? evaluation if needed. Patient is pending additcion consult Health Concerns: as above. Plan of Treatment: as above. Assessment: as above.
--- NOTE | 2022-07-25 12:28 | MHC.CM.PN ---
PT MEDICALLY CLEARED FOR D/C HOME NO SERVICES, PT WAS PROVIDED W/LIST OF COMMUNITY RESOURCES BY [facility], PT WILL ARRANGE TRANSPORT.
[2022-07-25] MEDS: Magnesium Oxide 400 MG TABLET 800 MG PO (13:04)
--- NOTE | 2022-07-25 13:50 | MHC.RECOVRN ---
This telegraphic typewriter repairer met w/ patient, patient was awake, resting in bed, alert. Pt reports no s/s of withdrawal at this time, CIWA performed, score 0, no visible tremors. This telegraphic typewriter repairer reviewed recovery resources, left patient with resource packet. Harm reduction reviewed. Patient states feeling better, not feeling any withdrawals. Patient has a history of ETOH induced gastritis, no history of ETOH seizures. Patient reports 5-6 years ago, went to detox, CSS at [facility] in [place], [place]. Patient reports it was a good experience. Patient has a safe place to d/c too, patient owns a home. Patient reports lives with 2 roommates who are ex alcoholics and supportive of recovery. This telegraphic typewriter repairer observed some confusion in patient, however, this telegraphic typewriter repairer unfamiliar with patients baseline.
--- NOTE | 2022-07-25 14:30 | HO.PM.IMPN ---
Subjective Subjective Date of Service: 07/26/22 Interval History: still tramulous and anxious ,little sleepy still not feelin upto the point Review of Systems still has tremor and feel anxious Denies any nausea or vomiting or abdominal pain fever chills. Physical Exam Vital Signs: Vital Signs: Last Vital Signs Temp 98.2 F 07/25/22 05:23 Pulse 85 07/25/22 05:23 Resp 18 07/25/22 05:23 BP 125/81 07/25/22 05:23 Pulse Ox 97 07/25/22 05:23 O2 Del Method 07/25/22 05:23 BMI result Body Mass Index 21.7 ?Appearance: Alert.? Oriented X3.? not in distress.? cvs: rrr, [id number] , no murmur res: clear to auscultation ,no rhonchii or wheezing abd: no rebound or guarding ,nt, bs present. ext pulses present , no cyanosis neuro: axo3 , nonfocal.,tremer /anxious. Objective Data Active Medications Acetaminophen (Acetaminophen 325 Mg Tablet) 650 mg PO Q6H PRN PRN Reason: Pain, Mild (Pain Scale 1-3) Docusate Sodium (Docusate Sodium 100 Mg Capsule) 100 mg PO DAILY PRN PRN Reason: Constipation Enoxaparin Sodium (Enoxaparin Sodium 40 Mg/0.4 Ml Syringe) 40 mg SUBCUT Q24H [facility] Last Admin: 07/24/22 21:00 Dose: 40 mg Documented By: LIVAN-DANIELICL Folic Acid (Folic Acid 1 Mg Tablet) 1 mg PO DAILY [facility] Last Admin: 07/25/22 08:33 Dose: 1 mg Documented By: LIVAN-ASHLEY Hydroxyzine HCl (Hydroxyzine Hcl 25 Mg Tablet) 25 mg PO Q6H PRN PRN Reason: anxiety/restlessness Lactated Ringer's (Lr) 1,000 mls @ 100 mls/hr IVCONT .Q10H [facility] Last Admin: 07/25/22 13:06 Dose: 100 mls/hr Documented By: LIVAN-ASHLEY Thiamine HCl 200 mg/ Sodium (Chloride) 102 mls @ 204 mls/hr IV Q8H [facility] Magnesium Oxide (Magnesium Oxide 400 Mg Tablet) 400 mg PO BIDPC [facility] Last Admin: 07/25/22 08:33 Dose: 400 mg Documented By: LUIS MIGUEL Ondansetron HCl (Ondansetron Hcl 4 Mg/2 Ml Vial) 4 mg IVPUSH Q8H PRN PRN Reason: Nausea and Vomiting Pharmacy Consult (Consult Rx Etoh Phenob Im/Po) 1 each MISCELLANE ONCE PRN; Protocol PRN Reason: Consult order Phenobarbital (Phenobarbital 15 Mg Tablet) 45 mg PO BID [facility] Stop: 07/26/22 09:01 Last Admin: 07/25/22 08:34 Dose: 45 mg Documented By: LUIS MIGUEL Phenobarbital (Phenobarbital 15 Mg Tablet) 15 mg PO BID [facility] Stop: 07/28/22 09:01 Phenobarbital (Phenobarbital 15 Mg Tablet) 15 mg PO DAILY [facility] Stop: 07/30/22 09:01 Sodium Chloride (0.9 % Sodium Chloride Flush 3 Ml Syringe) 3 ml IVFLUSH QSHIFT [facility] Last Admin: 07/25/22 14:13 Dose: Not Given Documented By: LUIS MIGUEL Non-Admin Reason: IV Running Labs CBC & Chem 7: 07/24/22 06:42 07/25/22 09:47 Labs: Laboratory Results - last 24 hr 07/25/22 09:47 Magnesium 1.5 L Assessment and Plan (1) Alcohol abuse with withdrawal: Status: Acute (2) Hypomagnesemia: Status: Acute (3) Alcoholic ketoacidosis: Status: Acute Plan 46-year-old male with past medical history of alcohol abuse presents to the hospital with of call withdrawal # alcohol abuse with alcohol withdrawal - delirium? tremors, with visual hallucinations( somewhat improving) - no history of withdrawal seizures - patient started on phenobarb protocol - folic and thiamine supplement - care team consulted # alcoholic ketoacidosis - VBG shows normal pH improved with hydration . # hypomagnesemia - repleted with iv and po . - follow Mag level DVT prophylaxis:? Early ambulation ongoing inaptient need: Alcohol withdrawal requiring phenobarb, CIWA monitoring, in addition hypomagnesemia requiring IV repletion. Time Spent With Patient Time: Total time managing care of this patient today ____ minutes. Quality Stroke Does the patient have a stroke diagnosis?: No VTE Prior VTE?: No VTE Risk Level:: Medical - moderate - high VTE Device Contraindication: Treatment Not Indicated VTE Drug Contraindication: N/A - Med Ordered
--- NOTE | 2022-07-25 15:04 | PC.NURSE ---
awaiting thiamine from pharmacy for start
[2022-07-25 18:06] VITALS: BP 142/70; PULSE 58; RESP 16; O2SAT 98
[2022-07-25 20:00] VITALS: BP 122/76; PULSE 71; RESP 18; TEMP 36.8; O2SAT 97
[2022-07-25] MEDS: Thiamine HCL 200 MG in 0.9 % Sodium Chloride 100 ML 204 MG IV (21:17)
[2022-07-25] MEDS: Enoxaparin Sodium 40 MG/0.4 ML SYRINGE SUBCUT (21:17)
[2022-07-26 03:47] VITALS: BP 134/67; PULSE 62; RESP 16; TEMP 37; O2SAT 98
[2022-07-26] MEDS: Nicotine 21 MG PATCH.TD24 TRANSDERMA (05:46)
[2022-07-26] MEDS: Thiamine HCL 200 MG in 0.9 % Sodium Chloride 100 ML 204 MG IV (05:46)
[2022-07-26 08:00] VITALS: BP 133/97; PULSE 63; RESP 18; TEMP 36.8; O2SAT 98
[2022-07-26] MEDS: Magnesium Sulfate/D5W 1 GM/100 ML PIGGYBACK IV (08:40)
[2022-07-26] MEDS: Folic Acid 1 MG TABLET PO (08:41)
[2022-07-26] MEDS: PHENobarbitaL 15 MG TABLET 45 MG PO (08:41)
[2022-07-26] MEDS: 0.9 % Sodium Chloride Flush 3 ML SYRINGE IVFLUSH (08:41)
[2022-07-26] MEDS: Magnesium Oxide 400 MG TABLET PO (08:42)
[2022-07-26 10:53] LABS: Magnesium 1.9 mg/dL (1.6-2.6)
--- NOTE | 2022-07-26 12:21 | MHC.CM.PN ---
PT NOW MEDICALLY CLEARED FOR D/C HOME NO SERVICES, PT MET W/REVCOVERY NURSE AND HAS BEEN SET UP W/APPT FOR MAT AT [facility] 08/02 AT 2:30PM, PT WILL ARRANGE TRANSPORT.
--- NOTE | 2022-07-26 12:24 | MHC.RECOVRN ---
This law writer met w/ patient, patient was alert, sitting up in recliner watching t.v. This law writer and patient reviewed [facility] and supports/services provided at the [facility]. Patient states in the past, had been taking Naltrexone, which helped with cravings. Patient reports took Naltrexone for 8 months and was in recovery during that time. Patient states drinks daily 15-20 plus nips of vodka daily for past many years. Patient reports history of anxiety, stating drinks to self medicate for the anxiety. Patient interested in starting Naltrexone again. Provider aware, provider states plans to obtains AST/ALT prior to starting Naltrexone as enzymes were high. Intake appt scheduled 08/02/22 at 2:30pm. Appt card given to patient. CM aware.
[2022-07-26 13:03] LABS: Alanine Aminotransferase 85 U/L (0-40); Albumin Level 4.1 g/dL (3.5-5.0); Alkaline Phosphatase 111 U/L (39-117); Aspartate Amino Transferase 135 U/L (5-37); Bilirubin Direct 0.5 mg/dL (0.0-0.5); Bilirubin Total 0.9 mg/dL (0.0-1.0)
== END 2022-07-26 14:08 | disposition home or self-care (01) | DRG 425 ==
LOC: HO.ED 22:17 → HO.EDOVER 22:17 → HO.S3 07-25 19:12
PROVIDERS: Physician Assistant; Admitting Provider Internal Medicine; Emergency Provider Emergency Medicine Emergency Medical Services; PCP Internal Medicine; Visit Provider Internal Medicine
DX: E83.42 Hypomagnesemia (principal); F10.131 Alcohol abuse with withdrawal delirium; D69.6 Thrombocytopenia, unspecified; E87.29 Other acidosis; D72.819 Decreased white blood cell count, unspecified; F17.210 Nicotine dependence, cigarettes, uncomplicated; Z20.822 Contact with and (suspected) exposure to COVID-19; Z71.6 Tobacco abuse counseling; Z79.899 Other long term (current) drug therapy
CPT/HCPCS: 0241U; 36415; 74177; 80048; 80053; 80076; 80143; 80179; 80307; 82077; 82803; 83605; 83690; 83735; 84132; 85025; 85027; 93005; 99285; J1650; J1885; J2405; J2560; J3411; J3475; Q9967